=== PATIENT | female | born 1975 | race Hispanic/Latino ===

== ENCOUNTER 2018-09-28 06:53 | Emergency (ER) | payer BC ==
[~2018-09-28] VITALS: Ht 160 cm; Wt 73.5 kg
--- OUTSIDE RECORDS SUMMARY | 2018-09-28 06:56 | XMS REPORT | Continuity of Care Document ---
Author Author [facility] Interface Address Unknown Phone Unavailable Problems Problem Status Onset Date Classification Date Reported Comments Source DX: J30.9=ALLERGIC RHINITIS, UNSPECIFIED Active 08/01/2018 [facility] STERILIZATION Active 11/14/2015 [facility] 789.00 - ABDMNAL PAIN UN Active 10/27/2014 [employer] [employer] NORMAL DELIVERY Active 05/27/2013 [facility] INDUCTION Active 05/27/2013 [facility] CHILDBIRTH Active 05/06/2013 [facility] R/O LABOR Active 04/02/2013 [facility] NUTRITION CONSULT Active 03/25/2013 [facility] GESTATIONAL DIABETES Active 03/25/2013 [facility] LABOR Active 03/06/2013 [facility] V221.1 Active 03/05/2013 [facility] 648.0 Active 03/05/2013 [facility] HEADACHE, VOMITING Active 01/29/2013 [facility] ABD PAIN Active 01/06/2013 [facility] FLANK PAIN Active 10/03/2012 [facility] Generalized abdominal pain<sup>1</sup> Active 10/02/2012 Problem 08/17/2018 Data migrated from [employer] on 09/20/14. [facility] Low back pain<sup>2</sup> Active 10/02/2012 Problem 08/17/2018 Data migrated from [employer] on 09/20/14. [facility] Patient currently <sup>3</sup> Active 10/02/2012 Problem 08/17/2018 Data migrated from [employer] on 09/20/14. [facility] 789.09/V22.2 ETOPIC Active 10/02/2012 [facility] Allergic rhinitis due to other allergen Active Diagnosis 09/10/2018 [facility] Allergic rhinitis due to pollen Active Diagnosis 09/10/2018 [facility] Allergic rhinitis due to animal (dog) hair and dander Active Diagnosis 09/10/2018 [facility] Seasonal allergic rhinitis, unspecified trigger Active Problem 09/10/2018 [facility] Vitamin D deficiency Active Problem 09/10/2018 [facility] Allergic rhinitis, unspecified seasonality, unspecified trigger Active Problem 09/10/2018 [facility] History of Helicobacter pylori infection Active Diagnosis 09/09/2018 [facility] Acute vaginitis Active Diagnosis 09/09/2018 [facility] Epigastric pain Active Diagnosis 09/09/2018 [facility] Vertigo Active Diagnosis 07/17/2018 [facility] Acute recurrent sinusitis, unspecified location Active Diagnosis 07/17/2018 [facility] Left ear pain Active Diagnosis 07/17/2018 [facility] H. pylori infection Active Diagnosis 06/07/2018 [facility] Routine general medical examination at a health care facility Active Diagnosis 06/07/2018 [facility] THREAT LABOR NEC-UNSPEC Active [facility] DIABETES IN PREG-UNSPEC Active [facility] Medications Medication Details Route Status Patient Instructions Ordering Provider Order Date Source Metronidazole 1 tablet Orally Active 500 mg Orally Twice a day Ethan 09/08/2018 [facility] Meclizine HCl 2 tablets as needed Orally Active 12.5 MG Orally Once a day Ethan 07/10/2018 [facility] Omeclamox-[place] as directed by mouth Active 20/500/500 by mouth daily [place] 06/02/2018 [facility] Vitamin D (Ergocalciferol) 1 capsule Orally Active 05335 UNIT Orally once per week Ethan 06/02/2018 [facility] Insulin Syringe for allergy use only as directed subcutaneously Active 31G X 5/16 subcutaneously 6-8 per week [place] 06/02/2018 [facility] EpiPen 2-[place] for anaphylactic emergency as directed Injection Active 0.3 MG/0.3ML Injection as needed (prn) Ethan 06/02/2018 [facility] Vitamin D (Ergocalciferol) 1 capsule Orally Active 30761 UNIT Orally once per week [place] 05/30/2018 [facility] Acetaminophen 300 MG / Codeine Phosphate 30 MG Oral Tablet [Tylenol with Codeine #3] 1 tab, Route: PO, Drug Form: TAB, Dosing Weight 73.636, kg, ONCE, PRN Pain Score 1-3, Start date: 12/09/15 17:32:00 CDT, Stop date: 01/08/16 17:31:00 CDT Inactive 12/09/2015 [facility] Ondansetron 4 mg, Route: IVP, ONCE, Dosing Weight 73.636, kg, PRN Nausea & Vomiting, Start date: 12/09/15 14:28:00 CDT Inactive 12/09/2015 [facility] Oxycodone 5 mg, 1 tab, Route: PO, Drug form: TAB, Q4H, Dosing Weight 73.636, kg, PRN Pain Score 4-6, Start date: 12/09/15 14:28:00 CDT, Duration: 30 day, Stop date: 01/08/16 14:27:00 CDTNotes: (Same as: Roxicodone) No Longer Active 12/09/2015 [facility] Naloxone 0.4 mg, 1 mL, Route: IVP, Drug form: INJ, Q2MIN, Dosing Weight 73.636, kg, PRN Narcotic Reversal, Start date: 12/09/15 14:28:00 CDT, Duration: 8 doses or times, Stop date: Limited # of timesNotes: Same as Narcan No Longer Active 12/09/2015 [facility] Hydromorphone 0.5 mg, 0.25 mL, Route: IVP, Drug form: INJ, Q5Min, Dosing Weight 73.636, kg, PRN Pain Score 7-10, Start date: 12/09/15 14:28:00 CDT, Duration: 4 doses or times, Stop date: Limited # of timesNotes: S sonya as: Dilaudid waste 1.5 mg No Longer Active 12/09/2015 [facility] Flumazenil 0.2 mg, 2 mL, Route: IVP, Drug form: INJ, PRN, Dosing Weight 73.636, kg, PRN Benzodiazepine Reversal, Initial dose, Start date: 12/09/15 14:28:00 CDT, Duration: 30 day, Stop date: 01/08/16 14:27:00 C DTNotes: (Same as: Romazicon) 0.3 mg waste No Longer Active 12/09/2015 [facility] Ketorolac 30 mg, Route: IVP, ONCE, Dosing Weight 73.636, kg, Start date: 12/09/15 14:28:00 CDT, Duration: 1 doses or times, Stop date: 12/09/15 14:28:00 CDT Inactive 12/09/2015 [facility] Acetaminophen 300 MG / Codeine Phosphate 30 MG Oral Tablet [Tylenol with Codeine #3] 1 tab, PO, Q6H, PRN Pain, X 7 day, # 28 tab, 0 Refill(s) Active 12/09/2015 [facility] ibuprofen 800 mg oral tablet 800 mg=1 tab, PO, Q8H, # 30 tab, 0 Refill(s) Active 12/09/2015 [facility] Ancef 2 gm, Route: IVPB, ONCE, Dosing Weight 73.636, kg, Start date: 12/09/15 13:07:00 CDT, Duration: 1 doses or times, Stop date: 12/09/15 13:07:00 CDT, Surgical Prophylaxis Only; For patients Inactive 12/09/2015 [facility] docusate sodium 100 mg oral capsule 100 mg=1 cap, PO, BID, Constipation, # 60 cap, 1 Refill(s) Active [facility] 05/29/2013 [facility] ibuprofen 800 mg oral tablet 800 mg=1 tab, PO, Q8H, as needed for pain, # 30 tab, 0 Refill(s) Active [facility] 05/29/2013 [facility] ferrous sulfate 325 mg oral enteric coated tablet 325 mg=1 tab, PO, Daily, # 90 tab, 0 Refill(s) Active [facility] 05/29/2013 [facility] Multivitamins oral tablet 1 tab, Route: PO, Drug Form: TAB, Dosing Weight 88.182, kg, Daily, Start date: 05/28/13 9:00:00, Duration: 30 day, Stop date: 06/26/13 9:00:00 No Longer Active [facility] 05/28/2013 [facility] M-M-R II 0.5 mL, Route: SUB-Q, Drug Form: PDR/INJ, Dosing Weight 88.182, kg, ONCALL, Give only if patient rubella non-immune, Start date: 05/27/13 20:00:00, Duration: 1 doses or times(Same as: M-M-R II) (measle x-gyirb-nmrvfrg virus vaccine 0.5 ml INJ VL) GIVE PRIOR TO DISCHARGE No Longer Active [facility] 05/28/2013 [facility] lanolin topical 1 appl, Route: TOP, PRN, Drug form: OINT, PRN Other -See Comment, Start date: 05/27/13 19:05:00, Duration: 30 day, Stop date: 06/26/13 19:04:00 No Longer Active [facility] 05/28/2013 [facility] zolpidem 5 mg, 1 tab, Route: PO, Drug form: TAB, Bedtime, Dosing Weight 88.182, kg, PRN Sleep, Start date: 05/27/13 19:05:00, Duration: 30 day, Stop date: 06/26/13 19:04:00(Same As: Ambien) No Longer Active [facility] 05/28/2013 [facility] Dermoplast 20% topical spray 1 spray, Route: TOP, PRN, Drug form: SPRY, PRN Irritation, Start date: 05/27/13 19:05:00, Duration: 30 day, Stop date: 06/26/13 19:04:00(Same As: Dermoplast) No Longer Active [facility] 05/28/2013 [facility] methylergonovine 0.2 mg, 1 mL, Route: IM, Drug form: INJ, PRN, Dosing Weight 88.182, kg, PRN Other -See Comment, Start date: 05/27/13 19:05:00, Duration: 30 day, Stop date: 06/26/13 19:04:00(Same as:Methergine) No Longer Active [facility] 05/28/2013 [facility] ondansetron 4 mg, 2 mL, Route: IVP, Drug form: INJ, Q8H, Dosing Weight 88.182, kg, PRN Nausea & Vomiting, Start date: 05/27/13 19:05:00, Duration: 30 day, Stop date: 06/26/13 19:04:00(Same as: Zofran) No Longer Active [facility] 05/28/2013 [facility] docusate 100 mg, 1 cap, Route: PO, Drug form: CAP, BID, Dosing Weight 88.182, kg, PRN Constipation, Start date: 05/27/13 19:05:00, Duration: 30 day, Stop date: 06/26/13 19:04:00(Same as: Colace) (Do Not Crush) No Longer Active [facility] 05/28/2013 [facility] bisacodyl 15 mg, 3 tab, Route: PO, Drug form: ECTAB, Daily, Dosing Weight 88.182, kg, PRN Other -See Comment, Start date: 05/27/13 19:05:00, Duration: 30 day, Stop date: 06/26/13 19:04:00(Same As: Dulcolax, Co rrectol) (Do Not Crush) "Do Not Crush" No Longer Active [facility] 05/28/2013 [facility] ibuprofen 600 mg, 1 tab, Route: PO, Drug form: TAB, Q6H, Dosing Weight 88.182, kg, PRN Pain Score 1-5, Start date: 05/27/13 19:05:00, Duration: 30 day, Stop date: 06/26/13 19:04:00(Same as: Motrin) "Do Not Crush" Take with food. No Longer Active [facility] 05/28/2013 [facility] acetaminophen-hydrocodone 325 mg-5 mg oral tablet 2 tab, Route: PO, Drug Form: TAB, Dosing Weight 88.182, kg, Q4H, PRN Pain Score 4-6, Start date: 05/27/13 19:05:00, Duration: 30 day, Stop date: 06/26/13 19:04:00(Same as: [place] 325/5) Do not exceed 4gm/day of acetaminophen. No Longer Active [facility] 05/28/2013 [facility] acetaminophen 650 mg, 2 tab, Route: PO, Drug form: TAB, Q4H, Dosing Weight 88.182, kg, PRN Headache 1-3, Start date: 05/27/13 19:05:00, Duration: 30 day, Stop date: 06/26/13 19:04:00Do not exceed 4 gm/day. (Same as: Tylenol) No Longer Active [facility] 05/28/2013 [facility] NS 500ml + Pitocin 30 units (Titrate) IV 30 unit 30 unit, 500 mL, Rate: 42 ml/hr, Infuse over: 11.9 hr, Dosing Weight 88.182, kg, Route: IV, Total Volume: 500 mL, Start date: 05/27/13 19:05:00, Duration: 2 doses or times, Stop date: 05/28/13 18:52:00, Replace Every: 11.9 hr No Longer Active [facility] 05/28/2013 [facility] Lactated Ringers IV 1,000 mL 1,000 mL, Rate: 100 ml/hr, Infuse over: 10 hr, Route: IV, Dosing Weight 88.182 kg, Total Volume: 1,000, Start date: 05/27/13 19:05:00, Duration: 30 day, Stop date: 06/26/13 19:04:00 No Longer Active [facility] 05/28/2013 [facility] misoprostol 1,000 microgram, 5 tab, Route: AK, Drug form: TAB, ONCALL, Dosing Weight 88.182, kg, Start date: 05/27/13 5:00:00, Duration: 1 doses or times, Stop date: 05/31/13 0:00:00(Same as:Cytotec) Take with food No Longer Active Dhaval 05/27/2013 [facility] methylergonovine 0.2 mg, 1 mL, Route: IM, Drug form: INJ, ONCALL, Dosing Weight 88.182, kg, Start date: 05/27/13 5:00:00, Duration: 30 day, Stop date: 06/26/13 4:59:00(Same as:Methergine) No Longer Active [facility] 05/27/2013 [facility] citric acid-sodium citrate 30 mL, Route: PO, Drug Form: SOLN, Dosing Weight 88.182, kg, ONCALL, Start date: 05/27/13 5:00:00, Duration: 30 day, Stop date: 06/26/13 4:59:00(Same As: Bicitra, Cytra-2) Sodium citrate- citric acid (500-334 mg/5 mL): 1 mL contains sodium 1 mEq/mL and bicarbonate 1 mEq/mL No Longer Active Dhaval 05/27/2013 [facility] carboprost 250 microgram, 1 mL, Route: IM, Drug form: INJ, ONCALL, Dosing Weight 88.182, kg, Start date: 05/27/13 5:00:00, Duration: 30 day, Stop date: 06/26/13 4:59:00(Same As: Hemabate) No Longer Active [facility] 05/27/2013 [facility] famotidine 20 mg, 2 mL, Route: IVP, Drug form: INJ, ONCALL, Dosing Weight 88.182, kg, Start date: 05/27/13 5:00:00, Duration: 30 day, Stop date: 06/26/13 4:59:00(Same as: Pepcid) Can be dilute in 5-10cc NS IVP: Slow IV push over at least 2 minutes. No Longer Active [facility] 05/27/2013 [facility] D5LR 1,000 mL 1,000 mL, Rate: 125 ml/hr, Infuse over: 8 hr, Route: IV, Dosing Weight 88.182 kg, Total Volume: 1,000, Start date: 05/27/13 4:32:00, Duration: 30 day, Stop date: 06/26/13 4:31:00 Inactive [facility] 05/27/2013 [facility] Insulin (regular) Titrate IV additive 100 unit + Sodium Chloride 0.9% (titrate) 99 mL 99 mL, Rate: Titrate, Dosing Weight 88.182, kg, Route: IV, Total Volume: 100, Concentration is 1 Unit/ mL;, Start Date: 05/27/13 4:32:00, Stop date: 06/26/13 4:31:00, Replace Every: 24 hr Inactive [facility] 05/27/2013 [facility] Cervidil 10 mg, 1 supp, Route: VAG, Drug form: INS, ONCE, Dosing Weight 88.182, kg, Start date: 05/27/13 4:29:00, Duration: 1 doses or times, Stop date: 05/27/13 4:29:00(Same as: Cervidil) Inactive [facility] 05/27/2013 [facility] butorphanol 1 mg, 0.5 mL, Route: IVP, Drug form: INJ, Q2H, Dosing Weight 88.182, kg, PRN Pain Score 1-5, Start date: 05/27/13 4:29:00, Duration: 30 day, Stop date: 06/26/13 4:28:00(Same As: Stadol) No Longer Active Dhaval 05/27/2013 [facility] lidocaine 1% 20 mL, Route: PERCUT, Drug Form: INJ, Dosing Weight 88.182, kg, PRN, PRN Other -See Comment, Start date: 05/27/13 4:29:00, Duration: 1 doses or times, Stop date: 06/19/13 0:00:00(Same as: Xylocaine) No Longer Active Dhaval 05/27/2013 [facility] terbutaline 0.25 mg, 0.25 mL, Route: SUB-Q, Drug form: INJ, PRN, Dosing Weight 88.182, kg, PRN Other -See Comment, Start date: 05/27/13 4:29:00, Duration: 1 doses or times, Stop date: 06/19/13 0:00:00DO NOT USE IN LEASING DIRECTOR AREA (Same As: Brethine) No Longer Active Dhaval 05/27/2013 [facility] ondansetron 4 mg, 2 mL, Route: IVP, Drug form: INJ, Q8H, Dosing Weight 88.182, kg, PRN Nausea & Vomiting, Start date: 05/27/13 4:29:00, Duration: 30 day, Stop date: 06/26/13 4:28:00(Same as: Zofran) No Longer Active Dhaval 05/27/2013 [facility] lidocaine 1% injectable solution 0.25 mL, Route: INTRADERM, Drug Form: INJ, Dosing Weight 88.182, kg, PRN, PRN Other -See Comment, Start date: 05/27/13 4:29:00, Duration: 30 day, Stop date: 06/26/13 4:28:00Preservative free. (Same as: Xylocaine MPF) No Longer Active Dhaval 05/27/2013 [facility] Lactated Ringers Injection IV 1,000 mL 1,000 mL, Rate: 100 ml/hr, Infuse over: 10 hr, Route: IV, Dosing Weight 88.182 kg, Total Volume: 1,000, Bolus for regional anesthesia per unit protocol, Start date: 05/27/13 4:29:00, Duration: 30 day, Stop date: 06/26/13 4:28:00 No Longer Active Dhaval 05/27/2013 [facility] Lactated Ringers IV 1,000 mL 1,000 mL, Rate: 125 ml/hr, Infuse over: 8 hr, Route: IV, Dosing Weight 88.182 kg, Total Volume: 1,000, Start date: 05/27/13 4:29:00, Duration: 30 day, Stop date: 06/26/13 4:28:00 No Longer Active Dhaval 05/27/2013 [facility] NS 500ml + Pitocin 30 units (Titrate) IV 30 unit 30 unit, 500 mL, Rate: 42 ml/hr, Infuse over: 11.9 hr, Dosing Weight 88.182, kg, Route: IV, Total Volume: 500 mL, Start date: 05/27/13 4:29:00, Duration: 2 day, Stop date: 05/29/13 4:28:00, Replace Every: 11.9 hr No Longer Active [facility] 05/27/2013 [facility] Zofran ODT 4 mg oral tablet, disintegrating 4 mg ODT, PO, Q4H, PRN Nausea and Vomiting, 20 tab, Substitution AllowedPRN Nausea and Vomiting Active [facility] 01/29/2013 [facility] meclizine 25 mg oral tablet 25 mg, 1 tab, PO, TID, PRN, 30 tab, dizziness, Substitution Allowed, TAB Active [facility] 01/29/2013 [facility] Zofran ODT 4 mg, Route: PO, Drug form: TABDIS, ONCE, Dosing Weight 75, kg, Start date: 01/29/13 7:58:00, Stop date: 01/29/13 7:58:00 Inactive [facility] 01/29/2013 [facility] [place] 5/325 oral tablet 1-2 tab, PO, Q4-6H, PRN, 15 tab, Pain, Substitution Allowed, Maintenance PO Active [facility] 10/03/2012 [facility] [place] 10/325 oral tablet 1 tab, Route: PO, Dosing Weight 67.273, kg, ONCE, Start date: 10/03/12 14:34:00, Stop date: 10/03/12 14:34:00 PO No Longer Active [facility] 10/03/2012 [facility] Zofran ODT 4 mg, Route: PO, Drug form: TABDIS, ONCE, Dosing Weight 67.273, kg, Priority: STAT, Start date: 10/03/12 14:33:00, Stop date: 10/03/12 14:33:00 PO No Longer Active [facility] 10/03/2012 [facility] Acid Calender Inspector 1 tablet at bedtime Orally Active 150 MG Orally Once a day Ethan [facility] Allergies, Adverse Reactions, Alerts Substance Category Reaction Severity Reaction type Status Date Reported Comments Source N.K.D.A. Adverse Reaction Info Not Available Adverse Reaction Active 09/08/2018 [facility] No Known Medication Allergies Assertion Drug allergy [facility] Immunizations Immunization Date Given Site Status Last Updated Comments Source Results Order Name Results Value Reference Range Date Interpretation Comments Source Sinus wo contrast CT Sinus wo contrast CT Clinical Indication: - J30.9 Allergic rhinitis, unspecified; Comparison: None Technique: CT of the sinuses is performed without contrast on a multi-detector CT. Coronal and sagittal reconstructions were obtained. CT imaging performed at this location utilizes radiation dose optimization techniques which include one or more of the following: -Automated exposure control -Adjustment of the mA and/or kV according to patient size -Use of iterative reconstruction technique CT Radiation Dose DLP 559 mGy-cm FINDINGS: PARANASAL SINUSES: The maxillary sinuses are clear and the osteomeatal complexes are patent. The ethmoid complex is clear and the sphenoethmoidal recesses are patent. The sphenoid sinus is clear. The frontal sinuses are clear and the frontal recesses are patent. SOFT TISSUES: There is no soft tissue swelling seen. There is no significant lymphadenopathy noted. There are no fluid collections. NASAL CAVITY: The nasal turbinates are unremarkable. The nasal bones are intact. The nasal septum is midline. ORBITS: The globes and extraocular muscles appear unremarkable. The orbital apex regions appear unremarkable. The orbital roof, floor, superior, inferior, medial and lateral garcia are intact. FACIAL BONES: There are no facial bone fractures noted. The pterygoid plates are intact. The zygomatic arches are intact. The cribriform plate and boo addy regions are unremarkable. The maxilla is intact. The mandible is intact with intact mandibular condyles and coronoid processes. IMPRESSION: Unremarkable CT examination of the sinuses. SL: [id number] 08/15/2018 - - Read by: Wilmer Miller MD Dictated Date/time: 08/15/18 11:13 Electronically Signed by: Wilmer Miller MD 08/15/18 11:15 FINAL REPORT [facility] BLOOD BANK RESULTS Antibody Scrn Negative (12/09/15 10:35 AM) 12/09/2015 [facility] BLOOD BANK RESULTS ABO/Rh O POS 12/09/2015 [facility] HEMATOLOGY Monocytes 4.9 % 2.0 - 12.0 12/09/2015 [facility] HEMATOLOGY Eosinophils 0.9 % 0.0 - 4.0 12/09/2015 [facility] HEMATOLOGY Basophils 0.5 % 0.0 - 1.0 12/09/2015 [facility] HEMATOLOGY Segs 53.5 % 45.0 - 75.0 12/09/2015 [facility] HEMATOLOGY Monocytes # 0.3 K/CMM 0.0 - 0.8 12/09/2015 [facility] HEMATOLOGY Segs-Bands # 2.9 K/CMM 1.5 - 8.1 12/09/2015 [facility] HEMATOLOGY Lymphocytes # 2.2 K/CMM 1.0 - 5.5 12/09/2015 [facility] HEMATOLOGY Lymphocytes 40.2 % 20.0 - 40.0 12/09/2015 [facility] HEMATOLOGY WBC 5.4 K/CMM 3.7 - 10.4 12/09/2015 [facility] HEMATOLOGY RBC 4.82 M/CMM 4.20 - 5.40 12/09/2015 [facility] HEMATOLOGY Hct 42.8 % 36.0 - 48.0 12/09/2015 [facility] HEMATOLOGY MCV 88.7 fL 80.0 - 98.0 12/09/2015 [facility] HEMATOLOGY MCH 29.5 pg 27.0 - 31.0 12/09/2015 [facility] HEMATOLOGY MCHC 33.2 g/dL 32.0 - 36.0 12/09/2015 [facility] HEMATOLOGY RDW 13.2 % 11.5 - 14.5 12/09/2015 [facility] HEMATOLOGY Platelet 229 K/CMM 133 - 450 12/09/2015 [facility] HEMATOLOGY Hgb 14.2 g/dL 12.0 - 16.0 12/09/2015 [facility] HEMATOLOGY MPV 8.8 fL 7.4 - 10.4 12/09/2015 [facility] BEDSIDE GLUCOSE TESTING Glucose POC 125 mg/dL 70 - 99 05/28/2013 [facility] 1Interpretive Data: Upper Reportable Limit: 200 mg/dL. [facility] CHEMISTRY BE Cord Art -9 mMol/L 05/28/2013 [facility] CHEMISTRY HCO3 Cord Art 21 mMol/L 05/28/2013 [facility] CHEMISTRY PO2 Cord Art 33 mm[Hg] 3 - 33 05/28/2013 Normal [facility] CHEMISTRY PCO2 Cord Art 65 mm[Hg] 37 - 77 05/28/2013 Normal [facility] CHEMISTRY pH Cord Art 7.12 7.11 - 7.36 05/28/2013 Normal [facility] CHEMISTRY Temp Cord Art 37.0 [place] 05/28/2013 [facility] CHEMISTRY PO2 Cord Surya 25 mm[Hg] 13 - 39 05/28/2013 Normal [facility] CHEMISTRY PCO2 Cord Surya 45 mm[Hg] 31 - 65 05/28/2013 Normal [facility] CHEMISTRY Temp Cord Surya 37.0 [place] 05/28/2013 [facility] CHEMISTRY HCO3 Cord Surya 20 mMol/L 05/28/2013 [facility] CHEMISTRY pH Cord Surya 7.25 7.16 - 7.41 05/28/2013 Normal [facility] CHEMISTRY BE Cord Surya -7 mMol/L 05/28/2013 [facility] BEDSIDE GLUCOSE TESTING Glucose POC 74 mg/dL - 99 05/27/2013 Normal 2Interpretive Data: Upper Reportable Limit: 200 mg/dL. [facility] BEDSIDE GLUCOSE TESTING Glucose POC 78 mg/dL 70 - 99 05/27/2013 Normal 3Interpretive Data: Upper Reportable Limit: 200 mg/dL. [facility] BLOOD BANK RESULTS RBC product Product available (05/27/2013 07:53:00) 05/27/2013 Normal [facility] [facility] HEMATOLOGY Segs-Bands # 6.8 K/CMM 1.5 - 8.1 05/27/2013 Normal [facility] HEMATOLOGY Basophils 0.3 % 0.0 - 1.0 05/27/2013 Normal [facility] HEMATOLOGY Monocytes # 0.4 K/CMM 0.0 - 0.8 05/27/2013 Normal [facility] HEMATOLOGY Eosinophils 0.5 % 0.0 - 4.0 05/27/2013 Normal [facility] HEMATOLOGY Microcyte 1+ *ABN* (05/27/2013 04:30:00) None Seen 05/27/2013 ABN [facility] HEMATOLOGY Lymphocytes # 2.2 K/CMM 1.0 - 5.5 05/27/2013 [facility] HEMATOLOGY Monocytes 4.0 % 2.0 - 12.0 05/27/2013 [facility] HEMATOLOGY Lymphocytes 23.2 % 20.0 - 40.0 05/27/2013 [facility] HEMATOLOGY Segs 72.0 % 45.0 - 75.0 05/27/2013 [facility] HEMATOLOGY MPV 9.1 fL 7.4 - 10.4 05/27/2013 [facility] HEMATOLOGY MCV 75.3 fL 81.0 - 99.0 05/27/2013 [facility] HEMATOLOGY RDW 15.9 % 11.5 - 14.5 05/27/2013 [facility] HEMATOLOGY MCHC 31.6 g/dL 32.0 - 36.0 05/27/2013 [facility] HEMATOLOGY MCH 23.8 pg 27.0 - 31.0 05/27/2013 [facility] HEMATOLOGY Platelet 229 K/CMM 133 - 450 05/27/2013 [facility] HEMATOLOGY Hct 31.5 % 36.0 - 48.0 05/27/2013 [facility] HEMATOLOGY WBC X 10x3 9.4 K/CMM 3.7 - 10.4 05/27/2013 [facility] HEMATOLOGY Hgb 10.0 g/dL 12.0 - 16.0 05/27/2013 [facility] HEMATOLOGY RBC X 10x6 4.19 M/CMM 4.20 - 5.40 05/27/2013 [facility] IMMUNOLOGY Treponemal Scr Non Reactive *NA* (05/27/2013 04:30:00) Non Reactive 05/27/2013 [facility] IMMUNOLOGY Hep Bs Ag Negative *NA* (05/27/2013 04:30:00) Negative 05/27/2013 [facility] BLOOD BANK RESULTS Antibody Scrn Negative (05/27/2013 03:23:00) 05/27/2013 [facility] BLOOD BANK RESULTS ABO/Rh O POS 05/27/2013 [facility] CHEMISTRY eGFR 149 mL/min/1.73m2 03/06/2013 1Result Comment: The eGFR is calculated using the CKD-EPI formula. In most young, healthy individuals the eGFR will be >90 mL/min/1.73m2. The eGFR declines with age. An eGFR of 60-89 may be normal in some populations, particularly the elderly, for whom the CKD-EPI formula has not been extensively validated. Use of the eGFR is not recommended in the following populations: Individuals with unstable creatinine concentrations, including patients and those with serious co-morbid conditions. Patients with extremes in muscle mass or diet. The data above are obtained from the National Kidney Disease Education Program (NKDEP) which additionally recommends that when the eGFR is used in patients with extremes of body mass index for purposes of drug dosing, the eGFR should be multiplied by the estimated BMI. [facility] CHEMISTRY Potassium Lvl 3.8 meq/L 3.5 - 5.1 03/06/2013 Normal [facility] CHEMISTRY Chloride Lvl 107 meq/L 95 - 109 03/06/2013 Normal [facility] CHEMISTRY Creatinine Lvl 0.3 mg/dL 0.5 - 1.4 03/06/2013 LOW [facility] CHEMISTRY Sodium Lvl 138 meq/L 135 - 145 03/06/2013 Normal [facility] CHEMISTRY Total Protein 6.7 g/dL 6.4 - 8.4 03/06/2013 Normal [facility] CHEMISTRY BUN 6 mg/dL 7 - 22 03/06/2013 LOW [facility] CHEMISTRY CO2 23 meq/L 24 - 32 03/06/2013 LOW [facility] CHEMISTRY ASPARTATE TRANSAMINASE 14 unit/L 0 - 37 03/06/2013 Normal [facility] CHEMISTRY Bili Total 0.2 mg/dL 0.2 - 1.3 03/06/2013 Normal [facility] CHEMISTRY Calcium Lvl 8.4 mg/dL 8.5 - 10.5 03/06/2013 LOW [facility] CHEMISTRY Glucose Lvl 77 mg/dL 70 - 99 03/06/2013 Normal 2Interpretive Data: Adult reference range values reflect the clinical guidelines of the [place] [employer]. [facility] CHEMISTRY Alk Phos 87 unit/L 39 - 136 03/06/2013 Normal [facility] CHEMISTRY ALANINE AMINOTRANSFERASE 21 unit/L 0 - 65 03/06/2013 Normal [facility] CHEMISTRY Albumin Lvl 2.9 g/dL 3.5 - 5.0 03/06/2013 [facility] CHEMISTRY A/G Ratio 0.8 0.7 - 1.6 03/06/2013 Normal [facility] CHEMISTRY B/C Ratio 20 6 - 25 03/06/2013 Normal [facility] CHEMISTRY Globulin 3.8 g/dL 2.0 - 4.0 03/06/2013 Normal [facility] CHEMISTRY AGAP 11.8 meq/L 10.0 - 20.0 03/06/2013 Normal [facility] HEMATOLOGY MCH 28.2 pg 27.0 - 31.0 03/06/2013 Normal [facility] HEMATOLOGY MCHC 32.7 g/dL 32.0 - 36.0 03/06/2013 Normal [facility] HEMATOLOGY RDW 13.0 % 11.5 - 14.5 03/06/2013 Normal [facility] HEMATOLOGY WBC X 10x3 9.0 K/CMM 3.7 - 10.4 03/06/2013 Normal [facility] HEMATOLOGY Platelet 254 K/CMM 133 - 450 03/06/2013 Normal [facility] HEMATOLOGY MPV 8.3 fL 7.4 - 10.4 03/06/2013 Normal [facility] HEMATOLOGY RBC X 10x6 3.74 M/CMM 4.20 - 5.40 03/06/2013 [facility] HEMATOLOGY Hgb 10.6 g/dL 12.0 - 16.0 03/06/2013 [facility] HEMATOLOGY Hct 32.3 % 36.0 - 48.0 03/06/2013 [facility] HEMATOLOGY MCV 86.3 fL 81.0 - 99.0 03/06/2013 Normal [facility] HEMATOLOGY Segs-Bands # 6.4 K/CMM 1.5 - 8.1 03/06/2013 Normal [facility] HEMATOLOGY Lymphocytes # 2.1 K/CMM 1.0 - 5.5 03/06/2013 Normal [facility] HEMATOLOGY Monocytes # 0.4 K/CMM 0.0 - 0.8 03/06/2013 Normal [facility] HEMATOLOGY Eosinophils # 0.1 K/CMM 0.0 - 0.5 03/06/2013 Normal [facility] HEMATOLOGY Segs 71.4 % 45.0 - 75.0 03/06/2013 Normal [facility] HEMATOLOGY Lymphocytes 23.0 % 20.0 - 40.0 03/06/2013 Normal [facility] HEMATOLOGY Monocytes 4.6 % 2.0 - 12.0 03/06/2013 Normal [facility] HEMATOLOGY Eosinophils 0.8 % 0.0 - 4.0 03/06/2013 Normal [facility] HEMATOLOGY Basophils 0.2 % 0.0 - 1.0 03/06/2013 Normal [facility] BEDSIDE GLUCOSE TESTING Gluc POC Comment 1 Notify RN/ 01/29/2013 [facility] BEDSIDE GLUCOSE TESTING Glucose POC 119 mg/dL 70 - 99 01/29/2013 [place] 1Interpretive Data: Upper Reportable Limit: 200 mg/dL. [facility] URINALYSIS UA Urobilinogen <=1.0 mg/dL 0.1 - 1.0 01/29/2013 [facility] URINALYSIS UA Sq Epi Few /LPF Few 01/29/2013 [facility] URINALYSIS UA Mucus Few /LPF None Seen 01/29/2013 [facility] URINALYSIS UA Leuk Est Trace *ABN* (01/29/2013 07:35:10) Negative 01/29/2013 ABN [facility] URINALYSIS UA WBC 2 /HPF 0 - 5 01/29/2013 Normal [facility] URINALYSIS UA RBC 3 /HPF 0 - 2 01/29/2013 [place] [facility] URINALYSIS UA Nitrite Negative (01/29/2013 07:35:10) Negative 01/29/2013 Normal [facility] URINALYSIS UA Turbidity Marked *ABN* (01/29/2013 07:35:10) Clear 01/29/2013 ABN [facility] URINALYSIS UA Spec Grav 1.020 <=1.030 01/29/2013 Normal [facility] URINALYSIS UA Ketones Negative mg/dL Negative 01/29/2013 [facility] URINALYSIS UA Color Yellow *NA* (01/29/2013 07:35:10) Yellow 01/29/2013 [facility] URINALYSIS UA pH 5.0 5.0 - 8.0 01/29/2013 Normal [facility] URINALYSIS UA Protein Negative mg/dL Negative 01/29/2013 Normal [facility] URINALYSIS UA Glucose Negative mg/dL Negative 01/29/2013 [facility] URINALYSIS UA Bili Negative *NA* (01/29/2013 07:35:10) Negative 01/29/2013 [facility] URINALYSIS UA Blood Small *ABN* (01/29/2013 07:35:10) Negative 01/29/2013 ABN [facility] CHEMISTRY eGFR 118 mL/min/1.73m2 01/07/2013 NA 1Result Comment: The eGFR is calculated using the CKD-EPI formula. In most young, healthy individuals the eGFR will be >90 mL/min/1.73m2. The eGFR declines with age. An eGFR of 60-89 may be normal in some populations, particularly the elderly, for whom the CKD-EPI formula has not been extensively validated. Use of the eGFR is not recommended in the following populations: Individuals with unstable creatinine concentrations, including patients and those with serious co-morbid conditions. Patients with extremes in muscle mass or diet. The data above are obtained from the National Kidney Disease Education Program (NKDEP) which additionally recommends that when the eGFR is used in patients with extremes of body mass index for purposes of drug dosing, the eGFR should be multiplied by the estimated BMI. [facility] CHEMISTRY Creatinine Lvl 0.6 mg/dL 0.5 - 1.4 01/07/2013 Normal [facility] CHEMISTRY CO2 23 meq/L 24 - 32 01/07/2013 LOW [facility] CHEMISTRY Calcium Lvl 8.3 mg/dL 8.5 - 10.5 01/07/2013 LOW [facility] CHEMISTRY Glucose Lvl 95 mg/dL 70 - 99 01/07/2013 Normal 2Interpretive Data: Adult reference range values reflect the clinical guidelines of the [place] [employer]. [facility] CHEMISTRY BUN 14 mg/dL 7 - 22 01/07/2013 Normal [facility] CHEMISTRY Sodium Lvl 140 meq/L 135 - 145 01/07/2013 Normal [facility] CHEMISTRY Potassium Lvl 3.9 meq/L 3.5 - 5.1 01/07/2013 Normal [facility] CHEMISTRY Chloride Lvl 106 meq/L 95 - 109 01/07/2013 Normal [facility] CHEMISTRY AGAP 14.9 meq/L 10.0 - 20.0 01/07/2013 Normal [facility] HEMATOLOGY Monocytes 4.5 % 2.0 - 12.0 01/07/2013 Normal [facility] HEMATOLOGY Eosinophils 0.8 % 0.0 - 4.0 01/07/2013 Normal [facility] HEMATOLOGY Lymphocytes 22.1 % 20.0 - 40.0 01/07/2013 Normal [facility] HEMATOLOGY Segs 72.2 % 45.0 - 75.0 01/07/2013 Normal [facility] HEMATOLOGY Lymphocytes # 2.2 K/CMM 1.0 - 5.5 01/07/2013 Normal [facility] HEMATOLOGY Segs-Bands # 7.3 K/CMM 1.5 - 8.1 01/07/2013 Normal [facility] HEMATOLOGY Basophils 0.4 % 0.0 - 1.0 01/07/2013 Normal [facility] HEMATOLOGY Basophils # 0.0 K/CMM 0.0 - 0.2 01/07/2013 Normal [facility] HEMATOLOGY Monocytes # 0.5 K/CMM 0.0 - 0.8 01/07/2013 Normal [facility] HEMATOLOGY Eosinophils # 0.1 K/CMM 0.0 - 0.5 01/07/2013 Normal [facility] HEMATOLOGY Hgb 11.3 g/dL 12.0 - 16.0 01/07/2013 LOW [facility] HEMATOLOGY Hct 34.1 % 36.0 - 48.0 01/07/2013 LOW [facility] HEMATOLOGY MCV 89.7 fL 81.0 - 99.0 01/07/2013 Normal [facility] HEMATOLOGY MPV 7.9 fL 7.4 - 10.4 01/07/2013 Normal [facility] HEMATOLOGY WBC 10.1 K/CMM 3.7 - 10.4 01/07/2013 Normal [facility] HEMATOLOGY MCHC 33.1 g/dL 32.0 - 36.0 01/07/2013 Normal [facility] HEMATOLOGY MCH 29.7 pg 27.0 - 31.0 01/07/2013 Normal [facility] HEMATOLOGY RBC 3.80 M/CMM 4.20 - 5.40 01/07/2013 LOW [facility] HEMATOLOGY RDW 14.1 % 11.5 - 14.5 01/07/2013 Normal [facility] HEMATOLOGY Platelet 226 K/CMM 133 - 450 01/07/2013 Normal [facility] CHEMISTRY U Preg Positive *ABN* (01/06/2013 21:30:00) Negative 01/07/2013 ABN [facility] URINALYSIS UA Urobilinogen <=1.0 mg/dL
*NA*
(01/06/2013 21:30:00) <sup> </sup> 0.1 - 1.0 01/07/2013 NA [facility] URINALYSIS UA pH 5.0 5.0 - 8.0 01/07/2013 Normal [facility] URINALYSIS UA Spec Grav 1.033 <=1.030 01/07/2013 HI [facility] URINALYSIS UA Turbidity Slight *ABN* (01/06/2013 21:30:00) Clear 01/07/2013 ABN [facility] URINALYSIS UA Color Yellow *NA* (01/06/2013 21:30:00) Yellow 01/07/2013 NA [facility] URINALYSIS UA Bacteria Occasional /HPF *NA* (01/06/2013 21:30:00) None Seen 01/07/2013 [facility] URINALYSIS UA RBC 6 /HPF 0 - 2 01/07/2013 HI [facility] URINALYSIS UA Glucose Negative mg/dL *NA* (01/06/2013 21:30:00) Negative 01/07/2013 NA [facility] URINALYSIS UA Blood Small *ABN* (01/06/2013 21:30:00) Negative 01/07/2013 ABN [facility] URINALYSIS UA Ketones Trace mg/dL *ABN* (01/06/2013 21:30:00) Negative 01/07/2013 ABN [facility] URINALYSIS UA Leuk Est Negative (01/06/2013 21:30:00) Negative 01/07/2013 Normal [facility] URINALYSIS UA Nitrite Negative (01/06/2013 21:30:00) Negative 01/07/2013 Normal [facility] URINALYSIS UA Mucus Few /LPF *NA* (01/06/2013 21:30:00) None Seen 01/07/2013 [facility] URINALYSIS UA Protein Negative mg/dL (01/06/2013 21:30:00) Negative 01/07/2013 Normal [facility] URINALYSIS UA Bili Negative *NA* (01/06/2013 21:30:00) Negative 01/07/2013 [facility] URINALYSIS UA Sq Epi Occasional /LPF *NA* (01/06/2013 21:30:00) Few 01/07/2013 NA [facility] URINALYSIS UA WBC 5 /HPF 0 - 5 01/07/2013 Normal [facility] BLOOD BANK RESULTS ABO/Rh O POS 10/03/2012 Unknown [facility] CHEMISTRY hCG Tot 387 mIU/mL 10/03/2012 NA 3Interpretive Data: Reference Range: Male 0 - 5 mIU/mL Non- Female 0 - 5 mIU/mL Note: hCG result should be used in conjunction with symptoms, results of other tests, and clinical impressions. Weeks of Gestation hCG (mIU/mL) 3 6 - 71 4 10-750 5 217 - 7,138 6 158 -31,795 7 3,697 - 163,563 8 32,065 - 149,571 9 63,803 - 151,410 10 46,506 - 186,977 11 27,832 - 210,612 14 13,950 - 62,530 15 12,039 - 70,971 16 9,040 - 56,451 17 8,175 - 55,868 18 8,099 - 58,176 [facility] CHEMISTRY Chloride Lvl 108 meq/L 95 - 109 10/03/2012 Normal [facility] CHEMISTRY Potassium Lvl 3.7 meq/L 3.5 - 5.1 10/03/2012 Normal [facility] CHEMISTRY Sodium Lvl 142 meq/L 135 - 145 10/03/2012 Normal [facility] CHEMISTRY eGFR 96 mL/min/1.73m2 10/03/2012 NA 1Result Comment: The eGFR is calculated using the CKD-EPI formula. In most young, healthy individuals the eGFR will be >90 mL/min/1.73m2. The eGFR declines with age. An eGFR of 60-89 may be normal in some populations, particularly the elderly, for whom the CKD-EPI formula has not been extensively validated. Use of the eGFR is not recommended in the following populations: Individuals with unstable creatinine concentrations, including patients and those with serious co-morbid conditions. Patients with extremes in muscle mass or diet. The data above are obtained from the National Kidney Disease Education Program (NKDEP) which additionally recommends that when the eGFR is used in patients with extremes of body mass index for purposes of drug dosing, the eGFR should be multiplied by the estimated BMI. [facility] CHEMISTRY Alk Phos 48 unit/L 39 - 136 10/03/2012 Normal [facility] CHEMISTRY AST 12 unit/L 0 - 37 10/03/2012 Normal [facility] CHEMISTRY Bili Total 0.4 mg/dL 0.2 - 1.3 10/03/2012 Normal [facility] CHEMISTRY Calcium Lvl 8.4 mg/dL 8.5 - 10.5 10/03/2012 LOW [facility] CHEMISTRY ALT 14 unit/L 0 - 65 10/03/2012 Normal [facility] CHEMISTRY Total Protein 7.5 g/dL 6.4 - 8.4 10/03/2012 Normal [facility] CHEMISTRY CO2 26 meq/L 24 - 32 10/03/2012 Normal [facility] CHEMISTRY Albumin Lvl 4.1 g/dL 3.5 - 5.0 10/03/2012 Normal [facility] CHEMISTRY Creatinine Lvl 0.8 mg/dL 0.5 - 1.4 10/03/2012 Normal [facility] CHEMISTRY BUN 12 mg/dL 7 - 22 10/03/2012 Normal [facility] CHEMISTRY Glucose Lvl 89 mg/dL 70 - 99 10/03/2012 Normal 2Interpretive Data: Adult reference range values reflect the clinical guidelines of the [place] [employer]. [facility] CHEMISTRY Globulin 3.4 g/dL 2.0 - 4.0 10/03/2012 Normal [facility] CHEMISTRY A/G Ratio 1.2 0.7 - 1.6 10/03/2012 Normal [facility] CHEMISTRY B/C Ratio 15 6 - 25 10/03/2012 Normal [facility] CHEMISTRY AGAP 11.7 meq/L 10.0 - 20.0 10/03/2012 Normal [facility] HEMATOLOGY Eosinophils # 0.0 K/CMM 0.0 - 0.5 10/03/2012 Normal [facility] HEMATOLOGY Lymphocytes # 2.1 K/CMM 1.0 - 5.5 10/03/2012 Normal [facility] HEMATOLOGY Monocytes # 0.3 K/CMM 0.0 - 0.8 10/03/2012 Normal [facility] HEMATOLOGY Segs-Bands # 5.1 K/CMM 1.5 - 8.1 10/03/2012 Normal [facility] HEMATOLOGY Basophils # 0.0 K/CMM 0.0 - 0.2 10/03/2012 Normal [facility] HEMATOLOGY Eosinophils 0.6 % 0.0 - 4.0 10/03/2012 Normal [facility] HEMATOLOGY Basophils 0.4 % 0.0 - 1.0 10/03/2012 Normal [facility] HEMATOLOGY Lymphocytes 28.3 % 20.0 - 40.0 10/03/2012 Normal [facility] HEMATOLOGY Monocytes 3.9 % 2.0 - 12.0 10/03/2012 Normal [facility] HEMATOLOGY Segs 66.8 % 45.0 - 75.0 10/03/2012 Normal [facility] HEMATOLOGY MPV 8.5 fL 7.4 - 10.4 10/03/2012 Normal [facility] HEMATOLOGY Platelet 215 K/CMM 133 - 450 10/03/2012 Normal [facility] HEMATOLOGY MCHC 32.4 g/dL 32.0 - 36.0 10/03/2012 Normal [facility] HEMATOLOGY RDW 13.3 % 11.5 - 14.5 10/03/2012 Normal [facility] HEMATOLOGY MCV 90.1 fL 81.0 - 99.0 10/03/2012 Normal [facility] HEMATOLOGY MCH 29.2 pg 27.0 - 31.0 10/03/2012 Normal [facility] HEMATOLOGY Hct 42.1 % 36.0 - 48.0 10/03/2012 Normal [facility] HEMATOLOGY Hgb 13.6 g/dL 12.0 - 16.0 10/03/2012 Normal [facility] HEMATOLOGY WBC 7.6 K/CMM 3.7 - 10.4 10/03/2012 Normal [facility] HEMATOLOGY RBC 4.67 M/CMM 4.20 - 5.40 10/03/2012 Normal [facility] CHEMISTRY U Preg Positive *ABN* (10/03/2012 14:00:00) Negative 10/03/2012 ABN [facility] URINALYSIS UA Urobilinogen <=1.0 mg/dL
*NA*
(10/03/2012 14:00:00) <sup> </sup> 0.1 - 1.0 10/03/2012 NA [facility] URINALYSIS UA RBC 1 /HPF 0 - 2 10/03/2012 Normal [facility] URINALYSIS UA Mucus Few /LPF *NA* (10/03/2012 14:00:00) None Seen 10/03/2012 NA [facility] URINALYSIS UA Sq Epi Few /LPF *NA* (10/03/2012 14:00:00) Few 10/03/2012 NA [facility] URINALYSIS UA WBC 1 /HPF 0 - 5 10/03/2012 Normal [facility] URINALYSIS UA Leuk Est Negative (10/03/2012 14:00:00) Negative 10/03/2012 Normal [facility] URINALYSIS UA Glucose Negative mg/dL *NA* (10/03/2012 14:00:00) Negative 10/03/2012 NA [facility] URINALYSIS UA Blood Negative (10/03/2012 14:00:00) Negative 10/03/2012 Normal [facility] URINALYSIS UA Nitrite Negative (10/03/2012 14:00:00) Negative 10/03/2012 Normal [facility] URINALYSIS UA Bili Negative *NA* (10/03/2012 14:00:00) Negative 10/03/2012 NA [facility] URINALYSIS UA Ketones Negative mg/dL *NA* (10/03/2012 14:00:00) Negative 10/03/2012 NA [facility] URINALYSIS UA Protein Negative mg/dL (10/03/2012 14:00:00) Negative 10/03/2012 Normal [facility] URINALYSIS UA Spec Grav 1.025 <=1.030 10/03/2012 Normal [facility] URINALYSIS UA pH 7.0 5.0 - 8.0 10/03/2012 Normal [facility] URINALYSIS UA Color Yellow *NA* (10/03/2012 14:00:00) Yellow 10/03/2012 NA [facility] URINALYSIS UA Turbidity Clear (10/03/2012 14:00:00) Clear 10/03/2012 Normal [facility] Microbiology Culture: Urine 10/03/2012 [facility] Preg < 14wks Single Gest w/Transvag US Preg < 14wks Single Gest w/Transvag US TRANSABDOMINAL PELVIC ULTRASOUND; TRANSVAGINAL ULTRASOUND: Transabdominal and transvaginal evaluation of the pelvis was done. The uterus is 9.8 cm in length and 4.7 x 5.1 cm in transverse dimension. The endometrium is 1.2 cm in thickness. There is no evidence of mass or intrauterine .No significant abnormality of the bladder is demonstrated. The right ovary is 2.4 x 1.8 x 1.6 cm in size. The left ovary is 4.1 x 2.5 x 2.2 cm in size. There is a 1.4 cm cyst with echoes in the right ovary. There is no evidence of other cysts, adnexal mass or free fluid. IMPRESSION: 1. Endometrial thickening without evidence of intrauterine . Differential for the positive test would include completed , early IUP and ectopic . Clinical and ultrasound follow-up is recommended. 2. Small complex right ovarian cyst, probably hemorrhagic, unlikely to be ectopic. SL:13 10/03/2012 - - Read by: Tramaine Stevenson Date/time: 10/03/12 17:32 Electronically Signed by: Tramaine Stevenson MD 10/03/12 17:35 FINAL REPORT [facility] Preg < 14wks Single Gest w/Transvag US Preg < 14wks Single Gest w/Transvag US EXAM: Ultrasound uterus less than 14 weeks single gestation HISTORY: Positive test, pelvic pain, evaluate for ectopic . TECHNIQUE: Transabdominal and transvaginal pelvic ultrasound. FINDINGS: Transabdominal pelvic ultrasound: The uterus measures 6.7 cm length and is anteverted. No intrauterine is seen. The ovaries are visualized. The bladder is underdistended. Transvaginal pelvic ultrasound performed to better evaluate the endometrium and ovaries. The endometrial stripe measures 1.3 cm thickness. No intrauterine gestational sac, yolk sac or embryo is seen. Nabothian cysts in the cervix. The left and right ovaries are visualized. No discrete adnexal mass is seen. No free fluid is seen. IMPRESSION: No intrauterine is seen. Differential considerations include an early intrauterine or spontaneous ; an ectopic is not excluded. Correlate with serial quantitative beta-hCG. SL:13 10/02/2012 - - Read by: Paulie Calderón Dictated Date/time: 10/03/12 08:05 Electronically Signed by: Paulie Calderón MD 10/03/12 08:19 FINAL REPORT [facility] Vital Signs Vital Sign Value Date Comments Source Weight 161 09/08/2018 [facility] Height 63 09/08/2018 [facility] Heart Rate 73 09/08/2018 [facility] Diastolic (mm Hg) 78 09/08/2018 [facility] Systolic (mm Hg) 120 09/08/2018 [facility] Weight 170 07/10/2018 [facility] Height 63 07/10/2018 [facility] Temperature Oral (F) 98.4 F 07/10/2018 [facility] Heart Rate 88 07/10/2018 [facility] Diastolic (mm Hg) 72 07/10/2018 [facility] Systolic (mm Hg) 118 07/10/2018 [facility] Weight 172 06/02/2018 [facility] Height 63 06/02/2018 [facility] Heart Rate 86 06/02/2018 [facility] Diastolic (mm Hg) 64 06/02/2018 [facility] Systolic (mm Hg) 112 06/02/2018 [facility] Weight 171 05/23/2018 [facility] Height 63 05/23/2018 [facility] Heart Rate 71 05/23/2018 [facility] Diastolic (mm Hg) 70 05/23/2018 [facility] Systolic (mm Hg) 126 05/23/2018 [facility] Respitory Rate 17 12/09/2015 [facility] [facility] Systolic (mm Hg) 124 12/09/2015 [facility] Diastolic (mm Hg) 74 12/09/2015 [facility] Respitory Rate 19 12/09/2015 [facility] Systolic (mm Hg) 115 12/09/2015 [facility] Diastolic (mm Hg) 71 12/09/2015 [facility] Respitory Rate 16 12/09/2015 [facility] Systolic (mm Hg) 115 12/09/2015 [facility] Diastolic (mm Hg) 68 12/09/2015 [facility] BMI Calculated 28.76 12/09/2015 [facility] Weight 73.636 12/09/2015 [facility] Height 160.02 cm 12/09/2015 [facility] Heart Rate 69 12/09/2015 [facility] Weight 74.545 11/30/2015 [facility] BMI Calculated 28.21 11/30/2015 [facility] Height 162.56 cm 11/30/2015 [facility] Weight 88.182 05/27/2013 [facility] Height 160.02 cm 05/27/2013 [facility] Height 160.02 cm 04/03/2013 [facility] Weight 84.545 04/03/2013 [facility] Height 160.02 cm 03/07/2013 [facility] Weight 83.636 03/07/2013 [facility] Temperature Oral (F) 98.3 F 01/29/2013 [facility] Heart Rate 98 01/29/2013 [facility] Diastolic (mm Hg) 67 01/29/2013 [facility] Respitory Rate 18 01/29/2013 [facility] Systolic (mm Hg) 108 01/29/2013 [facility] Weight 75 01/29/2013 [facility] Height 160.02 cm 01/29/2013 [facility] Temperature Oral (F) 97.7 F 01/29/2013 [facility] Respitory Rate 18 01/29/2013 [facility] Heart Rate 97 01/29/2013 [facility] Diastolic (mm Hg) 78 01/29/2013 [facility] Systolic (mm Hg) 116 01/29/2013 [facility] Respitory Rate 20 01/07/2013 [facility] Systolic (mm Hg) 120 01/07/2013 [facility] Diastolic (mm Hg) 80 01/07/2013 [facility] Heart Rate 88 01/07/2013 [facility] Temperature Oral (F) 98.0 F 01/07/2013 [facility] Temperature Oral (F) 98.0 F 01/07/2013 [facility] Respitory Rate 20 01/07/2013 [facility] Diastolic (mm Hg) 69 01/07/2013 [facility] Systolic (mm Hg) 112 01/07/2013 [facility] Heart Rate 86 01/07/2013 [facility] Weight 76.364 01/07/2013 [facility] Height 160.02 cm 01/07/2013 [facility] Diastolic (mm Hg) 82 01/07/2013 [facility] Systolic (mm Hg) 121 01/07/2013 [facility] Heart Rate 104 01/07/2013 [facility] Respitory Rate 20 01/07/2013 [facility] Temperature Oral (F) 98.1 F 01/07/2013 [facility] Weight 67.273 10/03/2012 [facility] Height 160.02 cm 10/03/2012 [facility] Encounters Location Location Details Encounter Type Encounter Number Reason For Visit Attending Provider ADM Date DC Date Status Source [facility] Outpatient [id number] 789.09/V22.2 ETOPIC KHURSHEED BANGLAWALA 10/02/2012 10/02/2012 Active [facility] Emergency [id number] FLANK PAIN GABRIELA ISMAEL 10/03/2012 10/03/2012 Active [facility] Emergency [id number] ABD PAIN NIMCO BING 01/06/2013 01/07/2013 Active [facility] Emergency [id number] HEADACHE, VOMITING NADIM LATTER DAY 01/29/2013 01/29/2013 Active [facility] OU [id number] LABOR ADRIANNA PUENTES 03/06/2013 03/06/[address] [facility] Outpatient [id number] 648.0 ADRIANNA PUENTES 03/25/[address] [facility] OU [id number] R/O LABOR ADRIANNA PUENTES 04/02/2013 04/02/[address] [facility] Outpatient [id number] NUTRITION CONSULT ADRIANNA PUENTES 05/01/[address] [facility] Inpatient [id number] NORMAL DELIVERY ADRIANNA PUENTES 05/27/2013 05/29/2013 Active [facility] Day Surgery [id number] Adrianna Puentes 12/09/2015 12/10/2015 [facility] Outpatient [id number] Adrianna Sheehan 08/15/2018 08/16/2018 [facility] Procedures Procedure Code Date Perfomer Comments Source
--- OUTSIDE RECORDS SUMMARY | 2018-09-28 06:57 | XMS REPORT | CCD ---
Author Author Auto Generated Organization [facility] Address Unknown Phone Unavailable Care Team Providers Care Servicing Manager Name Role Phone Yana Howe RP Allergies, Adverse Reactions, Alerts Substance Reaction Status NKDA Active
--- OUTSIDE RECORDS SUMMARY | 2018-09-28 06:57 | XMS REPORT | CCD ---
Author Author Auto Generated Organization [facility] Address Unknown Phone Unavailable Care Team Providers Care Rack Cleaner Name Role Phone Dean Ferrera CP Allergies, Adverse Reactions, Alerts Substance Reaction Status NKDA Active Medications Medication Instructions Start Date End Date Status meclizine 25 mg oral 25 mg, 1 tab, PO, TID, PRN, 30 tab, 01/29/2013 Ordered tablet dizziness, Substitution Allowed, TAB Zofran ODT 4 mg oral 4 mg ODT, PO, Q4H, PRN Nausea and 01/29/2013 Ordered tablet, Vomiting, 20 tab, Substitution disintegrating Allowed PRN Nausea and Vomiting Zofran ODT 4 mg, Route: PO, Drug form: TABDIS, 01/29/2013 01/29/2013 Completed ONCE, Dosing Weight 75, kg, Start date: 01/29/13 7:58:00, Stop date: 01/29/13 7:58:00 Vital Signs Most recent to oldest [Reference Range]: 1 2 Height 160.02 cm (01/29/2013 07:17:00) Temperature Oral [96.4-99.1 DegF] 98.3 DegF (01/29/2013 09:52:00) 97.7 DegF (01/29/2013 07:17:00) Systolic Blood Pressure [90-140 mmHg] 108 mmHg (01/29/2013 09:52:00) 116 mmHg (01/29/2013 07:17:00) Diastolic Blood Pressure [60-90 mmHg] 67 mmHg (01/29/2013 09:52:00) 78 mmHg (01/29/2013 07:17:00) Respiratory Rate [14-20 BRMIN] 18 BRMIN (01/29/2013 09:52:00) 18 BRMIN (01/29/2013 07:17:00) Peripheral Pulse Rate [60-100 bpm] 98 bpm (01/29/2013 09:52:00) 97 bpm (01/29/2013 07:17:00) Weight 75 kg (01/29/2013 07:17:00) Results BEDSIDE GLUCOSE TESTING Most recent to oldest [Reference Range]: 1 Glucose POC [70-99 mg/dL] 119 mg/dL 1 *HI* (01/29/2013 07:50:00) Gluc POC Comment 1 Notify RN/MD *NA* (01/29/2013 07:50:00) 1Interpretive Data: Upper Reportable Limit: 200 mg/dL. URINALYSIS Most recent to oldest [Reference Range]: 1 UA Turbidity [Clear] Marked *ABN* (01/29/2013 07:35:10) UA Color [Yellow] Yellow *NA* (01/29/2013 07:35:10) UA pH [5.0-8.0] 5.0 (01/29/2013 07:35:10) UA Spec Grav [<=1.030] 1.020 (01/29/2013 07:35:10) UA Glucose [Negative mg/dL] Negative mg/dL *NA* (01/29/2013 07:35:10) UA Blood [Negative] Small *ABN* (01/29/2013 07:35:10) UA Ketones [Negative mg/dL] Negative mg/dL *NA* (01/29/2013 07:35:10) UA Protein [Negative mg/dL] Negative mg/dL (01/29/2013 07:35:10) UA Urobilinogen [0.1-1.0 mg/dL] <=1.0 mg/dL *NA* (01/29/2013 07:35:10) UA Bili [Negative] Negative *NA* (01/29/2013 07:35:10) UA Leuk Est [Negative] Trace *ABN* (01/29/2013 07:35:10) UA Nitrite [Negative] Negative (01/29/2013 07:35:10) UA WBC [0-5 /HPF] 2 /HPF (01/29/2013 07:35:10) UA RBC [0-2 /HPF] 3 /HPF *HI* (01/29/2013 07:35:10) UA Sq Epi [Few /LPF] Few /LPF *NA* (01/29/2013 07:35:10) UA Mucus [None Seen /LPF] Few /LPF *NA* (01/29/2013 07:35:10) Microbiology Reports PROCEDURE:Culture: Urine STATUS: Auth (Verified) BODY SITE: COLLECTED DATE/TIME: 01/29/2013 07:35:00 SOURCE: Urine, Clean Catch FREE TEXT SOURCE: FINAL REPORTS Final Report No Growth PRELIMINARY REPORTS Preliminary Report No Growth; Holding
--- OUTSIDE RECORDS SUMMARY | 2018-09-28 06:57 | XMS REPORT | CCD ---
Author Author Auto Generated Organization [facility] Address Unknown Phone Unavailable Care Team Providers Care Assembly Machine Offbearer Name Role Phone Julien Puentes RP Allergies, Adverse Reactions, Alerts Substance Reaction Status NKDA Active
--- OUTSIDE RECORDS SUMMARY | 2018-09-28 06:57 | XMS REPORT | CCD ---
Author Author Auto Generated Organization [facility] Address Unknown Phone Unavailable Care Team Providers Care Precision Devices Inspector/Tester Name Role Phone Dean Ferrera CP Allergies, [...]
--- OUTSIDE RECORDS SUMMARY | 2018-09-28 06:57 | XMS REPORT | CCD ---
Author Author Auto Generated Organization [facility] Address Unknown Phone Unavailable Care Team Providers Care Accounts Receivable Bookkeeper Name Role Phone Wilson Oliver CP Allergies, Adverse Reactions, Alerts Substance Reaction Status NKDA Active Vital Signs Most recent to oldest [Reference Range]: 1 2 3 Height 160.02 cm (01/06/2013 21:28:00) Temperature Oral [96.4-99.1 DegF] 98.0 DegF (01/07/2013 01:34:00) 98.0 DegF (01/06/2013 22:54:00) 98.1 DegF (01/06/2013 21:28:00) Systolic Blood Pressure [90-140 mmHg] 120 mmHg (01/07/2013 01:34:00) 112 mmHg (01/06/2013 22:54:00) 121 mmHg (01/06/2013 21:28:00) Diastolic Blood Pressure [60-90 mmHg] 80 mmHg (01/07/2013 01:34:00) 69 mmHg (01/06/2013 22:54:00) 82 mmHg (01/06/2013 21:28:00) Respiratory Rate [14-20 BRMIN] 20 BRMIN (01/07/2013 01:34:00) 20 BRMIN (01/06/2013 22:54:00) 20 BRMIN (01/06/2013 21:28:00) Peripheral Pulse Rate [60-100 bpm] 88 bpm (01/07/2013 01:34:00) 86 bpm (01/06/2013 22:54:00) 104 bpm *HI* (01/06/2013 21:28:00) Weight 76.364 kg (01/06/2013 21:28:00) Results URINALYSIS Most recent to oldest [Reference Range]: 1 UA Turbidity [Clear] Slight *ABN* (01/06/2013 21:30:00) UA Color [Yellow] Yellow *NA* (01/06/2013 21:30:00) UA pH [5.0-8.0] 5.0 (01/06/2013 21:30:00) UA Spec Grav [<=1.030] 1.033 *HI* (01/06/2013 21:30:00) UA Glucose [Negative mg/dL] Negative mg/dL *NA* (01/06/2013 21:30:00) UA Blood [Negative] Small *ABN* (01/06/2013 21:30:00) UA Ketones [Negative mg/dL] Trace mg/dL *ABN* (01/06/2013 21:30:00) UA Protein [Negative mg/dL] Negative mg/dL (01/06/2013:30:00) UA Urobilinogen [0.1-1.0 mg/dL] <=1.0 mg/dL *NA* (01/06/2013:30:00) UA Bili [Negative] Negative *NA* (01/06/2013:30:00) UA Leuk Est [Negative] Negative (01/06/2013 21:30:00) UA Nitrite [Negative] Negative (01/06/2013 21:30:00) UA WBC [0-5 /HPF] 5 /HPF (01/06/2013 21:30:00) UA RBC [0-2 /HPF] 6 /HPF *HI* (01/06/2013 21:30:00) UA Bacteria [None Seen /HPF] Occasional /HPF *NA* (01/06/2013 21:30:00) UA Sq Epi [Few /LPF] Occasional /LPF *NA* (01/06/2013 21:30:00) UA Mucus [None Seen /LPF] Few /LPF *NA* (01/06/2013 21:30:00) CHEMISTRY Most recent to oldest [Reference Range]: 1 Sodium Lvl [135-145 mEq/L] 140 mEq/L (01/06/2013 22:57:00) Potassium Lvl [3.5-5.1 mEq/L] 3.9 mEq/L (01/06/2013 22:57:00) Chloride Lvl [95-109 mEq/L] 106 mEq/L (01/06/2013 22:57:00) CO2 [24-32 mEq/L] 23 mEq/L *LOW* (01/06/2013 22:57:00) AGAP [10.0-20.0 mEq/L] 14.9 mEq/L (01/06/2013 22:57:00) Creatinine Lvl [0.5-1.4 mg/dL] 0.6 mg/dL (01/06/2013 22:57:00) eGFR 118 mL/min/1.73m2 1 *NA* (01/06/2013:57:00) BUN [7-22 mg/dL] 14 mg/dL (01/06/2013 22:57:00) Glucose Lvl [70-99 mg/dL] 95 mg/dL 2 (01/06/2013:57:00) Calcium Lvl [8.5-10.5 mg/dL] 8.3 mg/dL *LOW* (01/06/2013 22:57:00) U Preg [Negative] Positive *ABN* (01/06/2013 21:30:00) 1Result Comment: The eGFR is calculated using [...] from the National Kidney Disease Education Program ( NKDEP) which additionally recommends that when the eGFR is used in patients with extremes of body mass index for purposes of drug dosing, the eGFR should be mul tiplied by the estimated BMI. 2Interpretive Data: Adult reference range values reflect the clinical guidelines of the [place] [employer]. HEMATOLOGY Most recent to oldest [Reference Range]: 1 WBC [3.7-10.4 K/CMM] 10.1 K/CMM (01/06/2013 22:57:00) RBC [4.20-5.40 M/CMM] 3.80 M/CMM *LOW* (01/06/2013 22:57:00) Hgb [12.0-16.0 g/dL] 11.3 g/dL *LOW* (01/06/2013 22:57:00) Hct [36.0-48.0 %] 34.1 % *LOW* (01/06/2013 22:57:00) MCV [81.0-99.0 fL] 89.7 fL (01/06/2013 22:57:00) MCH [27.0-31.0 pg] 29.7 pg (01/06/2013 22:57:00) MCHC [32.0-36.0 g/dL] 33.1 g/dL (01/06/2013 22:57:00) RDW [11.5-14.5 %] 14.1 % (01/06/2013 22:57:00) Platelet [133-450 K/CMM] 226 K/CMM (01/06/2013 22:57:00) MPV [7.4-10.4 fL] 7.9 fL (01/06/2013 22:57:00) Segs [45.0-75.0 %] 72.2 % (01/06/2013 22:57:00) Lymphocytes [20.0-40.0 %] 22.1 % (01/06/2013 22:57:00) Monocytes [2.0-12.0 %] 4.5 % (01/06/2013 22:57:00) Eosinophils [0.0-4.0 %] 0.8 % (01/06/2013 22:57:00) Basophils [0.0-1.0 %] 0.4 % (01/06/2013 22:57:00) Segs-Bands # [1.5-8.1 K/CMM] 7.3 K/CMM (01/06/2013 22:57:00) Lymphocytes # [1.0-5.5 K/CMM] 2.2 K/CMM (01/06/2013 22:57:00) Monocytes # [0.0-0.8 K/CMM] 0.5 K/CMM (01/06/2013 22:57:00) Eosinophils # [0.0-0.5 K/CMM] 0.1 K/CMM (01/06/2013 22:57:00) Basophils # [0.0-0.2 K/CMM] 0.0 K/CMM (01/06/2013 22:57:00)
--- OUTSIDE RECORDS SUMMARY | 2018-09-28 06:57 | XMS REPORT | CCD ---
Author Author Auto Generated Organization [facility] Address Unknown Phone Unavailable Care Team Providers Care Copywriter Name Role Phone Aydin Leone CP Allergies, Adverse Reactions, Alerts Substance Reaction Status NKDA Active Medications Medication Instructions Start Date End Date Status [place] 5/325 oral 1-2 tab, PO, Q4-6H, PRN, 15 tab, 10/03/2012 10/08/2012 Ordered tablet Pain, Substitution Allowed, Maintenance [place] 10/325 oral 1 tab, Route: PO, Dosing Weight 10/03/2012 10/03/2012 Completed tablet 67.273, kg, ONCE, Start date: 10/03/12 14:34:00, Stop date: 10/03/12 14:34:00 Zofran ODT 4 mg, Route: PO, Drug form: TABDIS, 10/03/2012 10/03/2012 Completed ONCE, Dosing Weight 67.273, kg, Priority: STAT, Start date: 10/03/12 14:33:00, Stop date: 10/03/12 14:33:00 Vital Signs Most recent to oldest [Reference Range]: 1 Height 160.02 cm (10/03/2012 13:32:00) Weight 67.273 kg (10/03/2012 13:32:00) Results URINALYSIS Most recent to oldest [Reference Range]: 1 UA Turbidity [Clear] Clear (10/03/2012 14:00:00) UA Color [Yellow] Yellow *NA* (10/03/2012 14:00:00) UA pH [5.0-8.0] 7.0 (10/03/2012 14:00:00) UA Spec Grav [<=1.030] 1.025 (10/03/2012 14:00:00) UA Glucose [Negative mg/dL] Negative mg/dL *NA* (10/03/2012:00:00) UA Blood [Negative] Negative (10/03/2012:00:00) UA Ketones [Negative mg/dL] Negative mg/dL *NA* (10/03/201200:00) UA Protein [Negative mg/dL] Negative mg/dL (10/03/2012:00:00) UA Urobilinogen [0.1-1.0 mg/dL] <=1.0 mg/dL *NA* (10/03/2012:00:00) UA Bili [Negative] Negative *NA* (10/03/2012:00:00) UA Leuk Est [Negative] Negative (10/03/2012:00:00) UA Nitrite [Negative] Negative (10/03/2012:00:00) UA WBC [0-5 /HPF] 1 /HPF (10/03/2012:00:00) UA RBC [0-2 /HPF] 1 /HPF (10/03/2012:00:00) UA Sq Epi [Few /LPF] Few /LPF *NA* (10/03/2012:00:00) UA Mucus [None Seen /LPF] Few /LPF *NA* (10/03/2012:00:00) BLOOD BANK RESULTS Most recent to oldest [Reference Range]: 1 ABO/Rh O POS *Unknown* (10/03/2012 14:45:00) CHEMISTRY Most recent to oldest [Reference Range]: 1 Sodium Lvl [135-145 mEq/L] 142 mEq/L (10/03/2012:33:00) Potassium Lvl [3.5-5.1 mEq/L] 3.7 mEq/L (10/03/2012:33:00) Chloride Lvl [95-109 mEq/L] 108 mEq/L (10/03/2012:33:00) CO2 [24-32 mEq/L] 26 mEq/L (10/03/2012:33:00) AGAP [10.0-20.0 mEq/L] 11.7 mEq/L (10/03/2012:33:00) Creatinine Lvl [0.5-1.4 mg/dL] 0.8 mg/dL (10/03/2012:33:00) eGFR 96 mL/min/1.73m2 1 *NA* (10/03/2012:) BUN [7-22 mg/dL] 12 mg/dL (10/03/2012) B/C Ratio [6-25] 15 (10/03/2012) Glucose Lvl [70-99 mg/dL] 89 mg/dL 2 (10/03/2012) Total Protein [6.4-8.4 g/dL] 7.5 g/dL (10/03/2012) Albumin Lvl [3.5-5.0 g/dL] 4.1 g/dL (10/03/2012) Globulin [2.0-4.0 g/dL] 3.4 g/dL (10/03/2012) A/G Ratio [0.7-1.6] 1.2 (10/03/2012) Calcium Lvl [8.5-10.5 mg/dL] 8.4 mg/dL *LOW* (10/03/2012) ALT [0-65 unit/L] 14 unit/L (10/03/2012) AST [0-37 unit/L] 12 unit/L (10/03/2012) Alk Phos [39-136 unit/L] 48 unit/L (10/03/2012) Bili Total [0.2-1.3 mg/dL] 0.4 mg/dL (10/03/2012) hCG Tot 387 mIU/mL 3 *NA* (10/03/2012) U Preg [Negative] Positive *ABN* (10/03/2012:00) 1Result Comment: The eGFR is calculated using [...] values reflect the clinical guidelines of the [place] [employer]. 3Interpretive Data: Reference Range: Male 0 - [...] 8,175 - 55,868 18 8,099 - 58,176 HEMATOLOGY Most recent to oldest [Reference Range]: 1 WBC [3.7-10.4 K/CMM] 7.6 K/CMM (10/03/2012 14:33:00) RBC [4.20-5.40 M/CMM] 4.67 M/CMM (10/03/2012:33:00) Hgb [12.0-16.0 g/dL] 13.6 g/dL (10/03/2012:33:00) Hct [36.0-48.0 %] 42.1 % (10/03/2012:33:00) MCV [81.0-99.0 fL] 90.1 fL (10/03/2012 14:33:00) MCH [27.0-31.0 pg] 29.2 pg (10/03/2012:33:00) MCHC [32.0-36.0 g/dL] 32.4 g/dL (10/03/2012:33:00) RDW [11.5-14.5 %] 13.3 % (10/03/2012:33:00) Platelet [133-450 K/CMM] 215 K/CMM (10/03/2012:33:00) MPV [7.4-10.4 fL] 8.5 fL (10/03/2012:33:00) Segs [45.0-75.0 %] 66.8 % (10/03/2012:33:00) Lymphocytes [20.0-40.0 %] 28.3 % (10/03/2012:33:00) Monocytes [2.0-12.0 %] 3.9 % (10/03/2012:33:00) Eosinophils [0.0-4.0 %] 0.6 % (10/03/2012:33:00) Basophils [0.0-1.0 %] 0.4 % (10/03/2012:33:00) Segs-Bands # [1.5-8.1 K/CMM] 5.1 K/CMM (10/03/2012:33:00) Lymphocytes # [1.0-5.5 K/CMM] 2.1 K/CMM (10/03/2012:33:00) Monocytes # [0.0-0.8 K/CMM] 0.3 K/CMM (10/03/2012:33:00) Eosinophils # [0.0-0.5 K/CMM] 0.0 K/CMM (10/03/2012:33:00) Basophils # [0.0-0.2 K/CMM] 0.0 K/CMM (10/03/2012:33:00) Microbiology Reports PROCEDURE:Culture: Urine STATUS: Auth (Verified) BODY SITE: COLLECTED DATE/TIME: 10/03/2012 14:00:00 SOURCE: Urine, Clean Catch FREE TEXT SOURCE: FINAL REPORTS Final Report <10,000 CFU/mL Skin [place] PRELIMINARY REPORTS Preliminary Report No Growth; Holding
--- OUTSIDE RECORDS SUMMARY | 2018-09-28 06:57 | XMS REPORT | CCD ---
Author Author Auto Generated Organization [facility] Address Unknown Phone Unavailable Care Team Providers Care Records Management Technician Name Role Phone Dean Ferrera CP Allergies, [...]
--- OUTSIDE RECORDS SUMMARY | 2018-09-28 06:57 | XMS REPORT | Summary of Care ---
Author Author [facility] Organization [facility] Address Unknown Phone Unavailable Encounter CAMI Allen(JANESSA) [id number] Date(s): 12/09/15 - 12/09/15 [facility] [address], [place] [address]- [phone] Discharge Disposition: Home or Self Care Attending Physician: Julien Puentes MD Referring Physician: Julien Puentes MD Vital Signs 1 2 3 Most recent to oldest [Reference Range]: 160.02 cm (12/09/15 10:49 AM) 162.56 cm (11/30/15 10:08 AM) Height 124/74 mmHg (12/09/15 3:45 PM) 115/71 mmHg (12/09/15 3:30 PM) 115/68 mmHg (12/09/15 3:15 PM) Blood Pressure [90-140/60-90 mmHg] 17 BRMIN (12/09/15 3:45 PM) 19 BRMIN (12/09/15 3:30 PM) 16 BRMIN (12/09/15 3:15 PM) Respiratory Rate [14-20 BRMIN] 69 bpm (12/09/15 10:49 AM) Peripheral Pulse Rate [60-100 bpm] 73.636 kg (12/09/15 10:49 AM) 74.545 kg (11/30/15 10:08 AM) Weight 28.76 m2 (12/09/15 10:49 AM) 28.21 m2 (11/30/15 10:08 AM) Body Mass Index Problem List Condition Effective Dates Status Health Status Informant Generalized 10/02/12 Active abdominal pain1 Low back pain2 10/02/12 Active Patient currently 10/02/12 Active 3 1Data migrated from [employer] on 09/20/14. 2Data migrated from [employer] on 09/20/14. 3Data migrated from [employer] on 09/20/14. Allergies, Adverse Reactions, Alerts Substance Reaction Severity Status NKDA Active Medications Ancef 2 gm, Route: IVPB, ONCE, Dosing Weight 73.636, kg, Start date: 12/09/15 13:07:00 CDT, Duration: 1 doses or times, Stop date: 12/09/15 13:07:00 CDT, Surgical Pro phylaxis Only; For patients < 120 kg Start Date: 12/09/15 Stop Date: 12/09/15 Status: Completed ANES flumazenil 0.2 mg, 2 mL, Route: IVP, Drug form: INJ, PRN, Dosing Weight 73.636, kg, PRN Live zodiazepine Reversal, Initial dose, Start date: 12/09/15 14:28:00 CDT, Duration: 30 day, Stop date: 01/08/16 14:27:00 CDT Notes: (Same as: Romazicon)0.3 mg waste Start Date: 12/09/15 Stop Date: 12/10/15 Status: Discontinued ANES HYDROmorphone 0.5 mg, 0.25 mL, Route: IVP, Drug form: INJ, Q5Min, Dosing Weight 73.636, kg, NC N Pain Score 7-10, Start date: 12/09/15 14:28:00 CDT, Duration: 4 doses or times , Stop date: Limited # of times Notes: Same as: Dilaudidwaste 1.5 mg Start Date: 12/09/15 Stop Date: 12/10/15 Status: Discontinued ANES ketOROLAC 30 mg, Route: IVP, ONCE, Dosing Weight 73.636, kg, Start date: 12/09/15 14:28:00 CDT, Duration: 1 doses or times, Stop date: 12/09/15 14:28:00 CDT Start Date: 12/09/15 Stop Date: 12/09/15 Status: Completed ANES naloxone 0.4 mg, 1 mL, Route: IVP, Drug form: INJ, Q2MIN, Dosing Weight 73.636, kg, PRN N arcotic Reversal, Start date: 12/09/15 14:28:00 CDT, Duration: 8 doses or times, Stop date: Limited # of times Notes: Same as Narcan Start Date: 12/09/15 Stop Date: 12/10/15 Status: Discontinued ANES ondansetron 4 mg, Route: IVP, ONCE, Dosing Weight 73.636, kg, PRN Nausea & Vomiting, Start date: 12/09/15 14:28:00 CDT Start Date: 12/09/15 Stop Date: 12/09/15 Status: Completed ANES oxyCODONE 5 mg, 1 tab, Route: PO, Drug form: TAB, Q4H, Dosing Weight 73.636, kg, PRN Pain Score 4-6, Start date: 12/09/15 14:28:00 CDT, Duration: 30 day, Stop date: 01/07 14:27:00 CDT Notes: (Same as: Roxicodone) Start Date: 12/09/15 Stop Date: 12/10/15 Status: Discontinued ibuprofen 800 mg oral tablet 800 mg=1 tab, PO, Q8H, # 30 tab, 0 Refill(s) Start Date: 12/09/15 Stop Date: 01/09/16 Status: Ordered Tylenol with Codeine #3 oral tablet 1 tab, Route: PO, Drug Form: TAB, Dosing Weight 73.636, kg, ONCE, PRN Pain Score 1-3, Start date: 12/09/15 17:32:00 CDT, Stop date: 01/08/16 17:31:00 CDT Start Date: 12/09/15 Stop Date: 12/09/15 Status: Completed Tylenol with Codeine #3 oral tablet 1 tab, PO, Q6H, PRN Pain, X 7 day, # 28 tab, 0 Refill(s) Start Date: 12/09/15 Stop Date: 12/16/15 Status: Ordered Results BLOOD BANK RESULTS Most recent to 1 oldest [Reference Range]: ABO/Rh O POS *Unknown* (12/09/15 10:35 AM) Antibody Scrn Negative (12/09/15 10:35 AM) HEMATOLOGY Most recent to 1 oldest [Reference Range]: WBC [3.7-10.4 K/CMM] 5.4 K/CMM (12/09/15 10:35 AM) RBC [4.20-5.40 4.82 M/CMM M/CMM] (12/09/15 10:35 AM) Hgb [12.0-16.0 g/dL] 14.2 g/dL (12/09/15 10:35 AM) Hct [36.0-48.0 %] 42.8 % (12/09/15 10:35 AM) MCV [80.0-98.0 fL] 88.7 fL (12/09/15 10:35 AM) MCH [27.0-31.0 pg] 29.5 pg (12/09/15 10:35 AM) MCHC [32.0-36.0 33.2 g/dL g/dL] (12/09/15 10:35 AM) RDW [11.5-14.5 %] 13.2 % (12/09/15 10:35 AM) Platelet [133-450 229 K/CMM K/CMM] (12/09/15 10:35 AM) MPV [7.4-10.4 fL] 8.8 fL (12/09/15 10:35 AM) Segs [45.0-75.0 %] 53.5 % (12/09/15 10:35 AM) Lymphocytes 40.2 % [20.0-40.0 %] *HI* (12/09/15 10:35 AM) Monocytes [2.0-12.0 4.9 % %] (12/09/15 10:35 AM) Eosinophils [0.0-4.0 0.9 % %] (12/09/15 10:35 AM) Basophils [0.0-1.0 0.5 % %] (12/09/15 10:35 AM) Segs-Bands # 2.9 K/CMM [1.5-8.1 K/CMM] (12/09/15 10:35 AM) Lymphocytes # 2.2 K/CMM [1.0-5.5 K/CMM] (12/09/15 10:35 AM) Monocytes # [0.0-0.8 0.3 K/CMM K/CMM] (12/09/15 10:35 AM) Immunizations No data available for this section Procedures No data available for this section Social History Social History Type Response Smoking Status Former smoker; Exposure to Tobacco Smoke None; Cigarette Smoking Last 365 Days No; Reg Smoking Cessation Counseling No1, 2 1per pt quit 4 years ago 2quit 3yrs ago Assessment and Plan Extracted from: Title: Clinical Document Author: Flori Melogza MD Date: 12/09/15 R1 Pre-Op Evaluation Pre-Op Diagnosis: 1. Multiparous patient desiring permanent sterilization Planned Procedure: Laparoscopic bilateral salpingectomy No changes in pre-op H&P. Labs: H/H: 14.2/42.8 Rh O pos G/C neg/neg Discussed with patient risks of procedure including bleeding, infection, damage to surrounding structues, need to convert to laparotomy, risk of regret, risk of tubal failure, risk of ectopic . Patient understands permanent nature of procedure. Patient understands these risks and desires to proceed. Flori Melgoza MD PGY-2, Credit Associate [facility] Extracted from: Title: Gynecology Pre-op H&P Author: Julien Puentes MD Date: 12/09/15 R2 LEATHER DRESSER Pre-op H&P: CC: scheduled procedure HPI: 39 y/o who presents for scheduled laparoscopic bilateral salpingectomy. Pt is a multiparous who desires permanent sterility. She has tried IUD in past but experienced dyspareunia. She then tried OCP's but did not like them. She desires definitve surgical management. ROS: deferred to day of surgery. OB Hx: SAB +D&C x 5 Dressage Judge: 12/R/5d STDs: H/o trichomonas, s/p tx and negative MIKE Paps: Denies h/o abnormal pap PMH: GDM PSH: D&C Meds: None All: NKDA FH:denies SH: Former smoker. Denies alcohol and IDU. PE: deferred to day of surgery Labs: 02/24/15 Pap NILM, neg HRHPV 11/14/15 GC/CT neg/neg Trichomonas neg Gardnerella pos, s/p tx Becky neg A/P: 39 y/o who presents for scheduled laparoscopic bilateral salpingectomy. 1. Multiparous desiring permanent sterility- Pt counseled on options, including reversible contraceptive options but desires definitive surgical management. R/B/A of procedure discussed in office with patient by Dr. Puentes. Pt understands that she has chosen a permanent form of contraception. Pt wishes to proceed. 2. HCM- Pap NILM 02/2015. GC/CT neg 10/2015 3. Dispo- pt for OR for scheduled surgery Susu Scherer MD PGY2
--- OUTSIDE RECORDS SUMMARY | 2018-09-28 06:57 | XMS REPORT ---
Author Author Leida Gomez Organization [employer] Address Unknown Phone Unavailable Care Team Providers Care Soa Engineer Name Role Phone Leida Gomez CP Unavailable Allergies No Known Allergies Problems Problem Type Condition Code Onset Dates Condition Status Assessment Allergic rhinitis due to other allergen J30.89 Active Assessment Allergic rhinitis due to animal (cat) (dog) hair and dander J30.81 Active Assessment Allergic rhinitis due to pollen J30.1 Active Problem Allergic rhinitis due to animal (cat) (dog) hair and dander J30.81 Active Problem Allergic rhinitis due to other allergen J30.89 Active Problem Allergic rhinitis due to pollen J30.1 Active Problem Seasonal allergic rhinitis, unspecified trigger J30.2 Active Problem Vitamin D deficiency E55.9 Active Problem Allergic rhinitis, unspecified seasonality, unspecified trigger J30.9 Active Medications No Known Medications Results No Known Results Summary Purpose [employer] Submission
--- OUTSIDE RECORDS SUMMARY | 2018-09-28 06:57 | XMS REPORT | CCD ---
Author Author Auto Generated Organization [facility] [place] [facility] Address Unknown Phone Unavailable Care Team Providers Care Ethylene Compressor Operator Name Role Phone Julien Puentes CP Allergies, Adverse Reactions, Alerts Substance Reaction Status NKDA Active
--- OUTSIDE RECORDS SUMMARY | 2018-09-28 06:57 | XMS REPORT ---
Author Author Leida Gomez Organization [employer] Address Unknown Phone Unavailable Care Team Providers Care Senior Android Software Engineer Name Role Phone Leida Gomez CP Unavailable Allergies No Known Allergies Problems Problem Type Condition Code Onset Dates Condition Status Problem Allergic rhinitis due to animal (cat) (dog) hair and dander J30.81 Active Problem Allergic rhinitis due to other allergen J30.89 Active Problem Allergic rhinitis due to pollen J30.1 Active Problem Seasonal allergic rhinitis, unspecified trigger J30.2 Active Problem Vitamin D deficiency E55.9 Active Problem Allergic rhinitis, unspecified seasonality, unspecified trigger J30.9 Active Medications No Known Medications Results No Known Results Summary Purpose [employer] Submission
--- OUTSIDE RECORDS SUMMARY | 2018-09-28 06:57 | XMS REPORT ---
Author Author Ramona Long [facility] [employer] Address Unknown Phone Unavailable Care Team Providers Care Automatic Spinning Lathe Setter Name Role Phone Ramona Long Unavailable Allergies, Adverse Reactions, Alerts Substance Reaction Event Type N.K.D.A. Info Not Available Non Drug Allergy Problems Problem Type Condition Code Onset Dates Condition Status Assessment History of Helicobacter pylori infection Z86.19 Active Assessment Acute vaginitis N76.0 Active Assessment Epigastric pain R10.13 Active Problem Allergic rhinitis due to animal (cat) (dog) hair and dander J30.81 Active Problem Allergic rhinitis due to other allergen J30.89 Active Problem Allergic rhinitis due to pollen J30.1 Active Problem Seasonal allergic rhinitis, unspecified trigger J30.2 Active Problem Vitamin D deficiency E55.9 Active Problem Allergic rhinitis, unspecified seasonality, unspecified trigger J30.9 Active Medications Medication Code System Code Instructions Start Date End Date Status Dosage Omeclamox-Casper [facility] 8221294553 20/500/500 by mouth daily Jun 02, 2018 Active as directed Vitamin D (Ergocalciferol) [facility] 56977752501 06671 UNIT Orally once per week Jun 02, 2018 May 04, 2019 Active 1 capsule Metronidazole [facility] 59583812151 500 mg Orally Twice a day September 08, 2018 September 15, 2018 Active 1 tablet Vitamin D (Ergocalciferol) [facility] 85881347351 18648 UNIT Orally once per week May 30, 2018 Active 1 capsule Insulin Syringe [facility] 26219504351 31G X 5/16 subcutaneously 6-8 per week Jun 02, 2018 Active for allergy use only as directed Meclizine HCl ND 91602688489 12.5 MG Orally Once a day July 10, 2018 Active 2 tablets as needed EpiPen 2-Casper [facility] 72636293275 0.3 MG/0.3ML Injection as needed (prn) Jun 02, 2018 Active for anaphylactic emergency as directed Acid [place] [facility] 29288316894 150 MG Orally Once a day Active 1 tablet at bedtime Vital Signs Date/Time: September 08, 2018 BMI 28.52 Index Weight 161 lbs Height 63 in Cardiac Monitoring Heart Rate 73 /min Blood Pressure Diastolic 78 mm Hg Blood Pressure Systolic 120 mm Hg Results No Known Results Summary Purpose [employer] Submission
--- OUTSIDE RECORDS SUMMARY | 2018-09-28 06:57 | XMS REPORT | CCD ---
Author Author Auto Generated Organization [facility] Address Unknown Phone Unavailable Care Team Providers Care Hspt Tutor Name Role Phone Dean Ferrera CP Allergies, [...]
--- OUTSIDE RECORDS SUMMARY | 2018-09-28 06:57 | XMS REPORT | CCD ---
Author Author Auto Generated Organization [facility] Address Unknown Phone Unavailable Care Team Providers Care Commercial Estimator Name Role Phone Julien Puentes CP Allergies, Adverse Reactions, Alerts Substance Reaction Status NKDA Active Vital Signs Most recent to oldest [Reference Range]: 1 Height 160.02 cm (03/06/2013 18:34:00) Weight 83.636 kg (03/06/2013 18:34:00) Results CHEMISTRY Most recent to oldest [Reference Range]: 1 Sodium Lvl [135-145 mEq/L] 138 mEq/L (03/06/2013 16:11:00) Potassium Lvl [3.5-5.1 mEq/L] 3.8 mEq/L (03/06/2013 16:11:00) Chloride Lvl [95-109 mEq/L] 107 mEq/L (03/06/2013 16:11:00) CO2 [24-32 mEq/L] 23 mEq/L *LOW* (03/06/2013 16:11:00) AGAP [10.0-20.0 mEq/L] 11.8 mEq/L (03/06/2013 16:11:00) Creatinine Lvl [0.5-1.4 mg/dL] 0.3 mg/dL *LOW* (03/06/2013 16:11:00) eGFR 149 mL/min/1.73m2 1 *NA* (03/06/2013 16:11:00) BUN [7-22 mg/dL] 6 mg/dL *LOW* (03/06/2013 16:11:00) B/C Ratio [6-25] 20 (03/06/2013 16:11:00) Glucose Lvl [70-99 mg/dL] 77 mg/dL 2 (03/06/2013 16:11:00) Total Protein [6.4-8.4 g/dL] 6.7 g/dL (03/06/2013) Albumin Lvl [3.5-5.0 g/dL] 2.9 g/dL *LOW* (03/06/2013) Globulin [2.0-4.0 g/dL] 3.8 g/dL (03/06/2013) A/G Ratio [0.7-1.6] 0.8 (03/06/2013) Calcium Lvl [8.5-10.5 mg/dL] 8.4 mg/dL *LOW* (03/06/2013) ALT [0-65 unit/L] 21 unit/L (03/06/2013) AST [0-37 unit/L] 14 unit/L (03/06/2013) Alk Phos [39-136 unit/L] 87 unit/L (03/06/2013) Bili Total [0.2-1.3 mg/dL] 0.2 mg/dL (03/06/2013) 1Result Comment: The eGFR is calculated using [...] values reflect the clinical guidelines of the [place] [employer]. HEMATOLOGY Most recent to oldest [Reference Range]: 1 WBC [3.7-10.4 K/CMM] 9.0 K/CMM (03/06/2013) RBC [4.20-5.40 M/CMM] 3.74 M/CMM *LOW* (03/06/2013:11:) Hgb [12.0-16.0 g/dL] 10.6 g/dL *LOW* (03/06/2013:11:) Hct [36.0-48.0 %] 32.3 % *LOW* (03/06/2013:) MCV [81.0-99.0 fL] 86.3 fL (03/06/2013::) MCH [27.0-31.0 pg] 28.2 pg (03/06/2013::) MCHC [32.0-36.0 g/dL] 32.7 g/dL (03/06/2013::) RDW [11.5-14.5 %] 13.0 % (03/06/2013 16::) Platelet [133-450 K/CMM] 254 K/CMM (03/06/2013:) MPV [7.4-10.4 fL] 8.3 fL (03/06/2013::) Segs [45.0-75.0 %] 71.4 % (03/06/2013::) Lymphocytes [20.0-40.0 %] 23.0 % (03/06/2013 16::) Monocytes [2.0-12.0 %] 4.6 % (03/06/2013::) Eosinophils [0.0-4.0 %] 0.8 % (03/06/2013:11:) Basophils [0.0-1.0 %] 0.2 % (03/06/2013 16:11:) Segs-Bands # [1.5-8.1 K/CMM] 6.4 K/CMM (03/06/2013::) Lymphocytes # [1.0-5.5 K/CMM] 2.1 K/CMM (03/06/2013 16:11:) Monocytes # [0.0-0.8 K/CMM] 0.4 K/CMM (03/06/2013 16:11:00) Eosinophils # [0.0-0.5 K/CMM] 0.1 K/CMM (03/06/2013 16:11:00)
--- OUTSIDE RECORDS SUMMARY | 2018-09-28 06:57 | XMS REPORT ---
Author Author Bina Mcintosh [facility] [employer] Address Unknown Phone Unavailable Care Team Providers Care Sausage Canner Name Role Phone Bina Mcintosh Unavailable Allergies, Adverse Reactions, Alerts Substance Reaction Event Type N.K.D.A. Info Not Available Non Drug Allergy Problems Problem Type Condition Code Onset Dates Condition Status Assessment Vertigo R42 Active Assessment Allergic rhinitis due to pollen J30.1 Active Assessment Acute recurrent sinusitis, unspecified location J01.91 Active Assessment Left ear pain H92.02 Active Problem Allergic rhinitis due to animal [...] Instructions Start Date End Date Status Dosage EpiPen 2-Casper [facility] [id number] 0.3 MG/0.3ML Injection as needed (prn) Jun 02, 2018 Active for anaphylactic emergency as directed Vitamin D (Ergocalciferol) ND 66306542613 34821 UNIT Orally once per week Jun 02, 2018 May 04, 2019 Active 1 capsule Meclizine HCl ND 12882050686 12.5 MG Orally Once a day July 10, 2018 Active 2 tablets as needed Vitamin D (Ergocalciferol) [facility] 35580710637 90264 UNIT Orally once per week May 30, 2018 Active 1 capsule Omeclamox-Casper [facility] 3656998771 20/500/500 by mouth daily Jun 02, 2018 Active as directed Insulin Syringe ND 25371946147 31G X 5/16 subcutaneously 6-8 per week Jun 02, 2018 Active for allergy use only as directed Acid Communications Programmer ND 66208244803 150 MG Orally Once a day Active 1 tablet at bedtime Vital Signs Date/Time: July 10, 2018 BMI 30.11 Index Weight 170 lbs Height 63 in Temperature 98.4 F Cardiac Monitoring Heart Rate 88 /min Blood Pressure Diastolic 72 mm Hg Blood Pressure Systolic 118 mm Hg Results Name Result Date Reference Range Unit Abnormality Flag CBC ----Platelets 279 20180710 ----NEUTROPHILS MID-0.5, GRA-4.6 20180710 ----MCHC 32.6 20180710 ----MCH 29.7 20180710 ----MCV 91.2 20180710 ----WBC 7.3 20180710 ----RDW 12.6 20180710 ----RBC 4.61 20180710 ----Hemoglobin 13.7 20180710 ----Hematocrit 42.0 20180710 DECADRON 1MGx4 Summary Purpose [employer] Submission
--- OUTSIDE RECORDS SUMMARY | 2018-09-28 06:57 | XMS REPORT | CCD ---
Author Author Auto Generated Organization [facility] Address Unknown Phone Unavailable Care Team Providers Care Tiler'S Assistant Name Role Phone Julien Puentes CP Allergies, Adverse Reactions, Alerts Substance Reaction Status NKDA Active Vital Signs Most recent to oldest [Reference Range]: 1 Height 160.02 cm (04/02/2013 19:56:00) Weight 84.545 kg (04/02/2013 19:56:00)
--- OUTSIDE RECORDS SUMMARY | 2018-09-28 06:57 | XMS REPORT | CCD ---
Author Author Auto Generated Organization [facility] Address Unknown Phone Unavailable Care Team Providers Care Financial Analysis Advisor Name Role Phone Dean Ferrera CP Allergies, [...]
--- OUTSIDE RECORDS SUMMARY | 2018-09-28 06:57 | XMS REPORT ---
Author Author Leida Gomez [facility] [employer] Address Unknown Phone Unavailable Care Team Providers Care Ball Truing Machine Operator Name Role Phone Leida Gomez CP Unavailable Allergies No Known Allergies Problems Problem Type Condition Code Onset Dates Condition Status Assessment Allergic rhinitis due to other allergen J30.89 Active Assessment Allergic rhinitis due to pollen J30.1 Active Assessment Allergic rhinitis due to animal (cat) (dog) hair and dander J30.81 Active Problem Allergic rhinitis due to animal [...] Medications Results No Known Results Summary Purpose [employer] Submission
--- OUTSIDE RECORDS SUMMARY | 2018-09-28 06:57 | XMS REPORT | CCD ---
Author Author Auto Generated Organization [facility] Address Unknown Phone Unavailable Care Team Providers Care Verifier Name Role Phone Julien Puentes CP Kathie Welch RP Allergies, Adverse Reactions, Alerts Substance Reaction Status NKDA Active Medications Medication Instructions Start Date End Date Status docusate sodium 100 100 mg=1 cap, PO, BID, 05/29/2013 Ordered mg oral capsule Constipation, # 60 cap, 1 Refill(s) ibuprofen 800 mg 800 mg=1 tab, PO, Q8H, as needed 05/29/2013 Ordered oral tablet for pain, # 30 tab, 0 Refill(s) ferrous sulfate 325 325 mg=1 tab, PO, Daily, # 90 tab, 05/29/2013 Ordered mg oral enteric 0 Refill(s) coated tablet D5LR 1,000 mL 1,000 mL, Rate: 125 ml/hr, Infuse 05/27/2013 05/27/2013 Discontinued over: 8 hr, Route: IV, Dosing Weight 88.182 kg, Total Volume: 1,000, Start date: 05/27/13 4:32:00, Duration: 30 day, Stop date: 06/26/13 4:31:00 Insulin (regular) 99 mL, Rate: Titrate, Dosing Weight 05/27/2013 05/27/2013 Discontinued Titrate IV additive 88.182, kg, Route: IV, Total 100 unit + Sodium Volume: 100, Concentration is 1 Chloride 0.9% Unit/ mL;, Start Date: 05/27/13 (titrate) 99 mL 4:32:00, Stop date: 06/26/13 4:31:00, Replace Every: 24 hr lanolin topical 1 appl, Route: TOP, PRN, Drug form: 05/27/2013 05/29/2013 Discontinued OINT, PRN Other -See Comment, Start date: 05/27/13 19:05:00, Duration: 30 day, Stop date: 06/26/13 19:04:00 zolpidem 5 mg, 1 tab, Route: PO, Drug form: 05/27/2013 05/29/2013 Discontinued TAB, Bedtime, Dosing Weight 88.182, kg, PRN Sleep, Start date: 05/27/13 19:05:00, Duration: 30 day, Stop date: 06/26/13 19:04:00(Same As: Ambien) M-M-R II 0.5 mL, Route: SUB-Q, Drug Form: 05/27/2013 05/29/2013 Discontinued PDR/INJ, Dosing Weight 88.182, kg, ONCALL, Give only if patient rubella non-immune, Start date: 05/27/13 20:00:00, Duration: 1 doses or times(Same as: M-M-R II) (rboaksg-jambl-gsgnntt virus vaccine 0.5 ml INJ VL) GIVE PRIOR TO DISCHARGE Dermoplast 20% 1 spray, Route: TOP, PRN, Drug 05/27/2013 05/29/2013 Discontinued topical spray form: SPRY, PRN Irritation, Start date: 05/27/13 19:05:00, Duration: 30 day, Stop date: 06/26/13 19:04:00(Same As: Dermoplast) methylergonovine 0.2 mg, 1 mL, Route: IM, Drug form: 05/27/2013 05/29/2013 Discontinued INJ, PRN, Dosing Weight 88.182, kg, PRN Other -See Comment, Start date: 05/27/13 19:05:00, Duration: 30 day, Stop date: 06/26/13 19:04:00(Same as:Methergine) ondansetron 4 mg, 2 mL, Route: IVP, Drug form: 05/27/2013 05/29/2013 Discontinued INJ, Q8H, Dosing Weight 88.182, kg, PRN Nausea & Vomiting, Start date: 05/27/13 19:05:00, Duration: 30 day, Stop date: 06/26/13 19:04:00(Same as: Zofran) docusate 100 mg, 1 cap, Route: PO, Drug 05/27/2013 05/29/2013 Discontinued form: CAP, BID, Dosing Weight 88.182, kg, PRN Constipation, Start date: 05/27/13 19:05:00, Duration: 30 day, Stop date: 06/26/13 19:04:00(Same as: Colace) (Do Not Crush) bisacodyl 15 mg, 3 tab, Route: PO, Drug form: 05/27/2013 05/29/2013 Discontinued ECTAB, Daily, Dosing Weight 88.182, kg, PRN Other -See Comment, Start date: 05/27/13 19:05:00, Duration: 30 day, Stop date: 06/26/13 19:04:00(Same As: Dulcolax, Correctol) (Do Not Crush) "Do Not Crush" bisacodyl 10 mg, 1 supp, Route: SD, Drug 05/27/2013 05/29/2013 Discontinued form: SUPP, PRN, Dosing Weight 88.182, kg, PRN Other -See Comment, Start date: 05/27/13 19:05:00, Duration: 30 day, Stop date: 06/26/13 19:04:00(Same As: Dulcolax, Bisco-Lax) ibuprofen 600 mg, 1 tab, Route: PO, Drug 05/27/2013 05/29/2013 Discontinued form: TAB, Q6H, Dosing Weight 88.182, kg, PRN Pain Score 1-5, Start date: 05/27/13 19:05:00, Duration: 30 day, Stop date: 06/26/13 19:04:00(Same as: Motrin)"Do Not Crush" Take with food. 1 tab, Route: PO, Drug Form: TAB, 05/28/2013 05/29/2013 Discontinued Multivitamins oral Dosing Weight 88.182, kg, Daily, tablet Start date: 05/28/13 9:00:00, Duration: 30 day, Stop date: 06/26/13 9:00:00 acetaminophen-hydroc 2 tab, Route: PO, Drug Form: TAB, 05/27/2013 05/29/2013 Discontinued odone 325 mg-5 mg Dosing Weight 88.182, kg, Q4H, PRN oral tablet Pain Score 4-6, Start date: 05/27/13 19:05:00, Duration: 30 day, Stop date: 06/26/13 19:04:00(Same as: Sibley 325/5) Do not exceed 4gm/day of acetaminophen. acetaminophen 650 mg, 2 tab, Route: PO, Drug 05/27/2013 05/29/2013 Discontinued form: TAB, Q4H, Dosing Weight 88.182, kg, PRN Headache 1-3, Start date: 05/27/13 19:05:00, Duration: 30 day, Stop date: 06/26/13 19:04:00Do not exceed 4 gm/day. (Same as: Tylenol) ibuprofen 800 mg, 1 tab, Route: PO, Drug 05/27/2013 05/29/2013 Discontinued form: TAB, Q8H, Dosing Weight 88.182, kg, PRN Pain Score 6-10, Start date: 05/27/13 19:05:00, Duration: 30 day, Stop date: 06/26/13 19:04:00(Same as: Motrin)"Do Not Crush" Take with food. acetaminophen-hydroc 1 tab, Route: PO, Drug Form: TAB, 05/27/2013 05/29/2013 Discontinued odone 325 mg-5 mg Dosing Weight 88.182, kg, Q4H, PRN oral tablet Pain Score 1-3, Start date: 05/27/13 19:05:00, Duration: 30 day, Stop date: 06/26/13 19:04:00(Same as: Sibley 325/5) Do not exceed 4gm/day of acetaminophen. NS 500ml + Pitocin 30 unit, 500 mL, Rate: 42 ml/hr, 05/27/2013 05/28/2013 Completed 30 units (Titrate) Infuse over: 11.9 hr, Dosing Weight IV 30 unit 88.182, kg, Route: IV, Total Volume: 500 mL, Start date: 05/27/13 19:05:00, Duration: 2 doses or times, Stop date: 05/28/13 18:52:00, Replace Every: 11.9 hr Lactated Ringers IV 1,000 mL, Rate: 100 ml/hr, Infuse 05/27/2013 05/29/2013 Discontinued 1,000 mL over: 10 hr, Route: IV, Dosing Weight 88.182 kg, Total Volume: 1,000, Start date: 05/27/13 19:05:00, Duration: 30 day, Stop date: 06/26/13 19:04:00 Cervidil 10 mg, 1 supp, Route: VAG, Drug 05/27/2013 05/27/2013 Completed form: INS, ONCE, Dosing Weight 88.182, kg, Start date: 05/27/13 4:29:00, Duration: 1 doses or times, Stop date: 05/27/13 4:29:00(Same as: Cervidil) butorphanol 1 mg, 0.5 mL, Route: IVP, Drug 05/27/2013 05/28/2013 Discontinued form: INJ, Q2H, Dosing Weight 88.182, kg, PRN Pain Score 1-5, Start date: 05/27/13 4:29:00, Duration: 30 day, Stop date: 06/26/13 4:28:00(Same As: Stadol) butorphanol 2 mg, 1 mL, Route: IVP, Drug form: 05/27/2013 05/28/2013 Discontinued INJ, Q2H, Dosing Weight 88.182, kg, PRN Pain Score 6-10, Start date: 05/27/13 4:29:00, Duration: 30 day, Stop date: 06/26/13 4:28:00(Same As: Stadol) lidocaine 1% 20 mL, Route: PERCUT, Drug Form: 05/27/2013 05/28/2013 Discontinued INJ, Dosing Weight 88.182, kg, PRN, PRN Other -See Comment, Start date: 05/27/13 4:29:00, Duration: 1 doses or times, Stop date: 06/19/13 0:00:00(Same as: Xylocaine) misoprostol 1,000 microgram, 5 tab, Route: SD, 05/27/2013 05/28/2013 Discontinued Drug form: TAB, ONCALL, Dosing Weight 88.182, kg, Start date: 05/27/13 5:00:00, Duration: 1 doses or times, Stop date: 05/31/13 0:00:00(Same as:Cytotec) Take with food methylergonovine 0.2 mg, 1 mL, Route: IM, Drug form: 05/27/2013 05/28/2013 Discontinued INJ, ONCALL, Dosing Weight 88.182, kg, Start date: 05/27/13 5:00:00, Duration: 30 day, Stop date: 06/26/13 4:59:00(Same as:Methergine) citric acid-sodium 30 mL, Route: PO, Drug Form: SOLN, 05/27/2013 05/28/2013 Discontinued citrate Dosing Weight 88.182, kg, ONCALL, Start date: 05/27/13 5:00:00, Duration: 30 day, Stop date: 06/26/13 4:59:00(Same As: Bicitra, Cytra-2) Sodium citrate-citric acid (500-334 mg/5 mL): 1 mL contains sodium 1 mEq/mL and bicarbonate 1 mEq/mL terbutaline 0.25 mg, 0.25 mL, Route: SUB-Q, 05/27/2013 05/28/2013 Discontinued Drug form: INJ, PRN, Dosing Weight 88.182, kg, PRN Other -See Comment, Start date: 05/27/13 4:29:00, Duration: 1 doses or times, Stop date: 06/19/13 0:00:00DO NOT USE IN MOLD SHIFTER AREA(Same As: Brethine) carboprost 250 microgram, 1 mL, Route: IM, 05/27/2013 05/28/2013 Discontinued Drug form: INJ, ONCALL, Dosing Weight 88.182, kg, Start date: 05/27/13 5:00:00, Duration: 30 day, Stop date: 06/26/13 4:59:00(Same As: Hemabate) famotidine 20 mg, 2 mL, Route: IVP, Drug form: 05/27/2013 05/28/2013 Discontinued INJ, ONCALL, Dosing Weight 88.182, kg, Start date: 05/27/13 5:00:00, Duration: 30 day, Stop date: 06/26/13 4:59:00(Same as: Pepcid)Can be dilute in 5-10cc NS IVP: Slow IV push over at least 2 minutes. ondansetron 4 mg, 2 mL, Route: IVP, Drug form: 05/27/2013 05/28/2013 Discontinued INJ, Q8H, Dosing Weight 88.182, kg, PRN Nausea & Vomiting, Start date: 05/27/13 4:29:00, Duration: 30 day, Stop date: 06/26/13 4:28:00(Same as: Zofran) lidocaine 1% 0.25 mL, Route: INTRADERM, Drug 05/27/2013 05/28/2013 Discontinued injectable solution Form: INJ, Dosing Weight 88.182, kg, PRN, PRN Other -See Comment, Start date: 05/27/13 4:29:00, Duration: 30 day, Stop date: 06/26/13 4:28:00Preservative free. (Same as: Xylocaine MPF) Lactated Ringers 1,000 mL, Rate: 100 ml/hr, Infuse 05/27/2013 05/28/2013 Discontinued Injection IV 1,000 over: 10 hr, Route: IV, Dosing mL Weight 88.182 kg, Total Volume: 1,000, Bolus for regional anesthesia per unit protocol, Start date: 05/27/13 4:29:00, Duration: 30 day, Stop date: 06/26/13 4:28:00 Lactated Ringers IV 1,000 mL, Rate: 125 ml/hr, Infuse 05/27/2013 05/28/2013 Discontinued 1,000 mL over: 8 hr, Route: IV, Dosing Weight 88.182 kg, Total Volume: 1,000, Start date: 05/27/13 4:29:00, Duration: 30 day, Stop date: 06/26/13 4:28:00 NS 500ml + Pitocin 30 unit, 500 mL, Rate: 42 ml/hr, 05/27/2013 05/28/2013 Discontinued 30 units (Titrate) Infuse over: 11.9 hr, Dosing Weight IV 30 unit 88.182, kg, Route: IV, Total Volume: 500 mL, Start date: 05/27/13 4:29:00, Duration: 2 day, Stop date: 05/29/13 4:28:00, Replace Every: 11.9 hr Vital Signs Most recent to oldest [Reference Range]: 1 Height 160.02 cm (05/27/2013 03:39:00) Weight 88.182 kg (05/27/2013 03:39:00) Results BEDSIDE GLUCOSE TESTING Most recent to oldest [Reference Range]: 1 2 3 Glucose POC [70-99 mg/dL] 125 mg/dL 1 *HI* (05/28/2013 05:06:00) 74 mg/dL 2 (05/27/2013 17:06:00) 78 mg/dL 3 (05/27/2013 16:04:00) 1Interpretive Data: Upper Reportable Limit: 200 mg/dL. 2Interpretive Data: Upper Reportable Limit: 200 mg/dL. 3Interpretive Data: Upper Reportable Limit: 200 mg/dL. BLOOD BANK RESULTS Most recent to oldest [Reference Range]: 1 2 3 ABO/Rh O POS *Unknown* (05/27/2013 03:23:00) Antibody Scrn Negative (05/27/2013 03:23:00) RBC product Product available (05/27/2013 07:53:00) CHEMISTRY Most recent to oldest [Reference Range]: 1 2 3 Temp Cord Art 37.0 DegC *NA* (05/27/2013 18:56:55) pH Cord Art [7.11-7.36] 7.12 (05/27/2013 18:56:55) PCO2 Cord Art [37-77 mmHg] 65 mmHg (05/27/2013 18:56:55) PO2 Cord Art [3-33 mmHg] 33 mmHg (05/27/2013 18:56:55) HCO3 Cord Art 21 mMol/L *NA* (05/27/2013 18:56:55) BE Cord Art -9 mMol/L *NA* (05/27/2013 18:56:55) Temp Cord Surya 37.0 DegC *NA* (05/27/2013 18:56:24) pH Cord Surya [7.16-7.41] 7.25 (05/27/2013 18:56:24) PCO2 Cord Surya [31-65 mmHg] 45 mmHg (05/27/2013 18:56:24) PO2 Cord Surya [13-39 mmHg] 25 mmHg (05/27/2013 18:56:24) HCO3 Cord Surya 20 mMol/L *NA* (05/27/2013 18:56:24) BE Cord Surya -7 mMol/L *NA* (05/27/2013 18:56:24) HEMATOLOGY Most recent to oldest [Reference Range]: 1 2 3 WBC [3.7-10.4 K/CMM] 9.4 K/CMM (05/27/2013 04:30:00) RBC [4.20-5.40 M/CMM] 4.19 M/CMM *LOW* (05/27/2013 04:30:00) Hgb [12.0-16.0 g/dL] 10.0 g/dL *LOW* (05/27/2013 04:30:00) Hct [36.0-48.0 %] 31.5 % *LOW* (05/27/2013:30:00) MCV [81.0-99.0 fL] 75.3 fL *LOW* (05/27/2013 04:30:00) MCH [27.0-31.0 pg] 23.8 pg *LOW* (05/27/2013:30:00) MCHC [32.0-36.0 g/dL] 31.6 g/dL *LOW* (05/27/2013 04:30:00) RDW [11.5-14.5 %] 15.9 % *HI* (05/27/2013:30:00) Platelet [133-450 K/CMM] 229 K/CMM (05/27/2013 04:30:00) MPV [7.4-10.4 fL] 9.1 fL (05/27/2013:30:00) Segs [45.0-75.0 %] 72.0 % (05/27/2013 04:30:00) Lymphocytes [20.0-40.0 %] 23.2 % (05/27/2013 04:30:00) Monocytes [2.0-12.0 %] 4.0 % (05/27/2013 04:30:00) Eosinophils [0.0-4.0 %] 0.5 % (05/27/2013 04:30:00) Basophils [0.0-1.0 %] 0.3 % (05/27/2013:30:00) Segs-Bands # [1.5-8.1 K/CMM] 6.8 K/CMM (05/27/2013 04:30:00) Lymphocytes # [1.0-5.5 K/CMM] 2.2 K/CMM (05/27/2013 04:30:00) Monocytes # [0.0-0.8 K/CMM] 0.4 K/CMM (05/27/2013 04:30:00) Microcyte [None Seen] 1+ *ABN* (05/27/2013 04:30:00) IMMUNOLOGY Most recent to oldest [Reference Range]: 1 2 3 Treponemal Scr [Non Reactive] Non Reactive *NA* (05/27/2013 04:30:00) Hep Bs Ag [Negative] Negative *NA* (05/27/2013 04:30:00)
--- OUTSIDE RECORDS SUMMARY | 2018-09-28 06:57 | XMS REPORT ---
Author Author Leida Gomez [facility] [employer] Address Unknown Phone Unavailable Care Team Providers Care Chicken Buyer Name Role Phone Leida Gomez CP Unavailable [...] Medications Results No Known Results Summary Purpose [facility] Submission
--- OUTSIDE RECORDS SUMMARY | 2018-09-28 06:58 | XMS REPORT | Summary of Care ---
Author Author Organization Address Unknown Phone Unavailable Care Team Providers Care Brand Ambassador Promotional Model Name Role Phone Leida Gomez PCP Encounter [facility] [id number](FIN) [id number] Date(s): 08/15/18 - 08/15/18 [id number] [place] [address]- Discharge Disposition: Home or Self Care Attending Physician: Julien Sheehan MD Referring Physician: Julien Sheehan MD Vital Signs No data available for this section Problem List Condition Effective Dates Status Health Status Informant Generalized 10/02/12 Active abdominal pain1 Low back pain2 10/02/12 Active Patient currently 10/02/12 Active 3 1Data migrated from [employer] on 09/20/14. 2Data migrated from [employer] on 09/20/14. 3Data migrated from [employer] on 09/20/14. Allergies, Adverse Reactions, Alerts No Known Medication Allergies Medications No data available for this section Results No data available for this section Immunizations No data available for this section Procedures No data available for this section Social History Social History Type Response Smoking Status Former smoker; Exposure to Tobacco Smoke None; Cigarette Smoking Last 365 Days No; Reg Smoking Cessation Counseling No1, 2 entered on: 12/09/15 1per pt quit 4 years ago 2quit 3yrs ago Assessment and Plan No data available for this section
--- OUTSIDE RECORDS SUMMARY | 2018-09-28 06:58 | XMS REPORT ---
Author Author Leida Gomez Organization [employer] Address Unknown Phone Unavailable Care Team Providers Care Detention Officer Name Role Phone Leida Gomez CP Unavailable Allergies No Known Allergies Problems Problem Type Condition Code Onset Dates Condition Status Assessment Allergic rhinitis due to animal (cat) (dog) hair and dander J30.81 Active Assessment Allergic rhinitis due to pollen J30.1 Active Assessment Allergic rhinitis due to other allergen J30.89 Active Problem Allergic rhinitis due to animal [...] Medications Results No Known Results Summary Purpose [facility] Submission
--- OUTSIDE RECORDS SUMMARY | 2018-09-28 06:58 | XMS REPORT ---
Author Author Leida Gomez [facility] [employer] Address Unknown Phone Unavailable Care Team Providers Care Rubber Tire Curer Name Role Phone Leida Gomez CP Unavailable [...] Medications Results No Known Results Summary Purpose [facility] Submission
--- OUTSIDE RECORDS SUMMARY | 2018-09-28 06:58 | XMS REPORT ---
Author Author Leida Gomez [facility] eClinicalWorks Address Unknown Phone Unavailable Care Team Providers Care Pellet Mill Operator Name Role Phone Eliel Renteria Leida CP Unavailable Allergies, Adverse Reactions, Alerts Substance Reaction Event Type N.K.D.A. Info Not Available Non Drug Allergy Problems Problem Type Condition Code Onset Dates Condition Status Assessment Seasonal allergic rhinitis, unspecified trigger J30.2 Active Assessment Routine general medical examination at a health care facility Z00.00 Active Assessment Screening for malignant neoplasm of breast Z12.31 Active Assessment Epigastric pain R10.13 Active Problem [...] Instructions Start Date End Date Status Dosage Acid Clinical Allergist [facility] 23271006616 150 MG Orally Once a day Active 1 tablet at bedtime Vital Signs Date/Time: May 23, 2018 BMI 30.29 Index Weight 171 lbs Height 63 in Cardiac Monitoring Heart Rate 71 /min Blood Pressure Diastolic 70 mm Hg Blood Pressure Systolic 126 mm Hg Results Name Result Date Reference Range Unit Abnormality Flag TSH ----TSH 1.290 [id number] 0.450-4.500 uIU/mL CBC With Differential/Platelet ----Basos 1 [id number] Not Estab. % ----MCV 90 31586040 79-97 fL ----Hematocrit 41.9 84691614 34.0-46.6 % ----Eos 1 [id number] Not Estab. % ----MCHC 32.9 75521531 31.5-35.7 g/dL ----Monocytes 6 [id number] Not Estab. % ----MCH 29.7 [id number] 26.6-33.0 pg ----Lymphs 37 [id number] Not Estab. % ----Eos (Absolute) 0.1 [id number] 0.0-0.4 x10E3/uL ----WBC 4.4 [id number] 3.4-10.8 x10E3/uL ----Monocytes(Absolute) 0.3 [id number] 0.1-0.9 x10E3/uL ----Lymphs (Absolute) 1.6 [id number] 0.7-3.1 x10E3/uL ----Hemoglobin 13.8 36209652 11.1-15.9 g/dL ----Neutrophils (Absolute) 2.4 [id number] 1.4-7.0 x10E3/uL ----RBC 4.64 20180527 3.77-5.28 x10E6/uL ----Immature Grans (Abs) 0.0 20180527 0.0-0.1 x10E3/uL ----Immature Granulocytes 0 81943743 Not Estab. % ----Neutrophils 55 88122984 Not Estab. % ----Baso (Absolute) 0.0 20180527 0.0-0.2 x10E3/uL ----RDW 13.8 12948560 12.3-15.4 % ----Platelets 239 [id number] 150-379 x10E3/uL Hemoglobin A1c ----Hemoglobin A1c 5.6 95405158 4.8-5.6 % Urinalysis, Routine ----Glucose Negative 20180527 Negative ----Protein Negative 20180527 Negative/Trace ----Occult Blood Negative 20180527 Negative ----Ketones Negative 20180527 Negative ----Urobilinogen,Semi-Qn 1.0 20180527 0.2-1.0 mg/dL ----Nitrite, Urine Negative 20180527 Negative ----Bilirubin Negative 20180527 Negative ----Appearance Clear 20180527 Clear ----WBC Esterase Negative 20180527 Negative ----pH 7.5 20180527 5.0-7.5 ----Microscopic Examination Comment [id number] ----Urine-Color Yellow 20180527 Yellow ----Specific [place] 1.026 20180527 1.005-1.030 H pylori urea Breath Test (Adult) ----H pylori Breath Test Positive 20180527 Negative A Comp. Metabolic Panel (14) ----BUN/Creatinine Ratio 20 20180527 9-23 ----eGFR If Africn Am 128 [id number] >59 mL/min/1.73 ----eGFR If NonAfricn Am 111 [id number] >59 mL/min/1.73 ----Creatinine 0.65 20180527 0.57-1.00 mg/dL ----Chloride 106 20180527 96-106 mmol/L ----Potassium 4.5 20180527 3.5-5.2 mmol/L ----Sodium 142 20180527 134-144 mmol/L ----Protein, Total 6.8 20180527 6.0-8.5 g/dL ----Albumin 4.5 20180527 3.5-5.5 g/dL ----Globulin, Total 2.3 20180527 1.5-4.5 g/dL ----A/G Ratio 2.0 20180527 1.2-2.2 ----BUN 13 20180527 6-24 mg/dL ----Glucose 88 20180527 65-99 mg/dL ----Carbon Dioxide, Total 22 20180527 20-29 mmol/L ----Calcium 8.9 20180527 8.7-10.2 mg/dL ----AST (SGOT) 13 20180527 0-40 IU/L ----ALT (SGPT) 12 20180527 0-32 IU/L ----Bilirubin, Total 0.4 20180527 0.0-1.2 mg/dL ----Alkaline Phosphatase 45 20180527 39-117 IU/L Vitamin D, 25-Hydroxy ----Vitamin D, 25-Hydroxy 6.6 20180527 30.0-100.0 ng/mL L Urine Culture, Routine ----Result 1 Comment [id number] ----Urine Culture, Routine Final report [id number] Lipid Panel ----HDL Cholesterol 56 20180527 >39 mg/dL ----Triglycerides 64 20180527 0-149 mg/dL ----LDL Cholesterol Calc 87 20180527 0-99 mg/dL ----VLDL Cholesterol Jermaine 13 20180527 5-40 mg/dL ----Cholesterol, Total 156 20180527 100-199 mg/dL Summary Purpose [employer]Works Submission
--- OUTSIDE RECORDS SUMMARY | 2018-09-28 06:58 | XMS REPORT ---
Author Author Ramona Long [facility] eClinicalWorks Address Unknown Phone Unavailable Care Team Providers Care Elevator Runner Name Role Phone Ramona Long CP Unavailable Allergies No Known Allergies Problems [...]
--- OUTSIDE RECORDS SUMMARY | 2018-09-28 06:58 | XMS REPORT ---
Author Author Leida Gomez [facility] eClinicalWorks Address Unknown Phone Unavailable Care Team Providers Care Quality Assurance Analyst Name Role Phone Julian Leida Renteria CP Unavailable Allergies, Adverse Reactions, Alerts Substance Reaction Event Type N.K.D.A. Info Not Available Non Drug Allergy Problems Problem Type Condition Code Onset Dates Condition Status Assessment Vitamin D deficiency E55.9 Active Assessment Allergic rhinitis, unspecified seasonality, unspecified trigger J30.9 Active Assessment H. pylori infection A04.8 Active Problem Allergic rhinitis due to animal [...] Instructions Start Date End Date Status Dosage Vitamin D (Ergocalciferol) [facility] 15222483156 23970 UNIT Orally once per week Jun 02, 2018 May 04, 2019 Active 1 capsule Omeclamox-Casper [facility] 9971513530 20/500/500 by mouth daily Jun 02, 2018 Active as directed Vitamin D (Ergocalciferol) [facility] 27887852225 89856 UNIT Orally once per week May 30, 2018 Active 1 capsule Acid Media Marketing Specialist [facility] 24806412472 150 MG Orally Once a day Active 1 tablet at bedtime Vital Signs Date/Time: Jun 02, 2018 BMI 30.47 Index Weight 172 lbs Height 63 in Cardiac Monitoring Heart Rate 86 /min Blood Pressure Diastolic 64 mm Hg Blood Pressure Systolic 112 mm Hg Results No Known Results Summary Purpose [employer] Submission
--- OUTSIDE RECORDS SUMMARY | 2018-09-28 06:58 | XMS REPORT ---
Author Author [facility] Address Unknown Phone Unavailable Care Team Providers Care International Recruiter Name Role Phone Unavailable Unavailable Problems This patient has no known problems. Allergies, Adverse Reactions, Alerts This patient has no known allergies or adverse reactions. Medications This patient has no known medications. Encounters Start Date/Time End Date/Time Encounter Type Admission Type Attending Clinicians Care Facility Care Department Encounter ID 2018-08-15 08:06:00 2018-08-15 08:06:00 Outpatient [id number]
[2018-09-28] MEDS ORDERED: KETOROLAC TROMETHAMINE 30 MG/ML VIAL IV STA (07:41)
[2018-09-28 07:44] LABS: BASOPHILS % 0.7 % (0.0-1.0); EOSINOPHILS # (AUTO) 0.1 (0.0-0.4); EOSINOPHILS % 1.8 % (0.0-6.0); HEMATOCRIT 43.3 % (34.2-44.1); HEMOGLOBIN 14.1 g/dL (12.0-16.0); LYMPHOCYTES # (AUTO) 1.8 (1.0-3.2); LYMPHOCYTES % 33.8 % (18.0-39.1); MEAN CORPUSCULAR HEMOGLOBIN 29.4 pg (28-32); MEAN CORPUSCULAR HGB CONC 32.6 g/dL (31-35); MEAN CORPUSCULAR VOLUME 90.2 fL (81-99); MONOCYTES # (AUTO) 0.2 (0.2-0.8); MONOCYTES % 4.4 % (4.4-11.3); NEUTROPHILS # (AUTO) 3.2 (2.1-6.9); NEUTROPHILS % 59.1 % (38.7-80.0); PLATELET COUNT 230 x10e3/uL (140-360); RED CELL DISTRIBUTION WIDTH 12.7 % (11.7-14.4)
[2018-09-28 07:46] LABS: BILIRUBIN,URINE NEGATIVE (NEGATIVE); CLARITY,URINE SL CLOUDY (CLEAR); COLOR,URINE YELLOW (YELLOW); KETONES,URINE NEGATIVE (NEGATIVE); LEUKOCYTE ESTERASE ,URINE NEGATIVE (NEGATIVE); NITRITE,URINE NEGATIVE (NEGATIVE); PROTEIN,URINE DIPSTICK NEGATIVE (NEGATIVE); URINE UROBILINOGEN 0.2 mg/dL (0.2 - 1)
[2018-09-28 07:49] LABS: PREGNANCY TEST, URINE NEGATIVE (NEGATIVE)
[2018-09-28 07:51] LABS: BACTERIA,URINE FEW /HPF; EPITHELIAL CELLS,URINE FEW /LPF; RBC,URINE >50 /HPF (0-5); WBC,URINE (MAN) 0-5 /HPF (0-5)
[2018-09-28 08:05] LABS: ALANINE AMINOTRANSFERASE 17 IU/L (0-55); ALBUMIN 4.2 g/dL (3.5-5.0); ALBUMIN/GLOBULIN RATIO 1.4 (0.8-2.0); ALKALINE PHOSPHATASE 52 IU/L (40-150); ANION GAP 11.1 mmol/L (8-16); BLOOD UREA NITROGEN 13 mg/dL (7-26); BUN/CREATININE RATIO 19 (6-25); CALCIUM 9.2 mg/dL (8.4-10.2); CARBON DIOXIDE 25 mmol/L (22-29); CHLORIDE 108 mmol/L (98-107); CREATININE, SERUM 0.68 mg/dL (0.57-1.11); EST GLOMERULAR FILTRATION RATE > 60 ML/MIN (60-); GLUCOSE 105 mg/dL (74-118); POTASSIUM 4.1 mmol/L (3.5-5.1); SODIUM 140 mmol/L (136-145)
--- NOTE | 2018-09-28 08:57 | Diagnostic Imaging Report ---
EXAM: CT of the abdomen and pelvis WITHOUT contrast HISTORY: LEFT FLANK PAIN, left lower quadrant, 1 day COMPARISON: None available. TECHNIQUE: The abdomen and pelvis were scanned utilizing a multidetector helical scanner. Coronal and sagittal reformats are available. PROTOCOL: Routine IV CONTRAST: None, which limits sensitivity and specificity of evaluation of the soft tissues and vascular structures. ORAL CONTRAST: None, which limits sensitivity and specificity of evaluation of the bowel. RADIATION DOSE: Total DLP: 397.46 mGy*cm Estimated effective dose: (DLP x 0.015 x size factor) Dose modulation, iterative reconstruction, and/or weight based adjustment of the mA/kV was utilized to reduce the radiation dose to as low as reasonably achievable. COMPLICATIONS: None FINDINGS: LOWER THORAX: Unremarkable. HEPATOBILIARY: No definite focal hepatic lesions. No biliary ductal dilatation. The gallbladder is unremarkable. SPLEEN: No splenomegaly. PANCREAS: No focal masses or ductal dilatation. ADRENALS: No adrenal nodule. KIDNEYS/URETERS: No hydronephrosis or solid mass lesion identified. A 1 mm calcification near the inferior pole of the left kidney. PELVIC ORGANS/BLADDER: The uterus is anteflexed. The urinary bladder is decompressed. PERITONEUM / RETROPERITONEUM: No free air or fluid. GI TRACT: On limited evaluation of the gastrointestinal tract, no dilation or wall thickening identified. The appendix appears normal. LYMPH NODES: No pathologically enlarged lymph nodes. VESSELS: Appear unremarkable. BONES: No aggressive osseous lesion or acute fracture. SOFT TISSUES: Unremarkable. IMPRESSION: A 1 mm nonobstructing stone near the interpolar left kidney. Signed by: Dr. Cesar Stack D.O., M.M.M. on 09/28/2018 8:54 AM
[2018-09-28 09:16] VITALS: BP 126/86
== END 2018-09-28 09:29 | disposition home or self-care (01) ==
LOC: ER 06:53
DX: R10.32 Left lower quadrant pain (principal); R11.0 Nausea; M54.5 Low back pain; S39.012A Strain of muscle, fascia and tendon of lower back, initial encounter
CPT/HCPCS: 36415; 74176; 80053; 81001; 81025; 85025; 99284; J1885